=== PATIENT | female | born 1975 | race Caucasian/White ===

== ENCOUNTER → 2018-10-26 14:22 | Outpatient (CLI) | payer BC, SELFPAY ==
[2018-10-31 14:35] LABS: HPV Reflexed? NOT INDICATED
== END ==
PROVIDERS: Visit Provider Obstetrics & Gynecology
DX: Z12.4 Encounter for screening for malignant neoplasm of cervix (principal)
CPT/HCPCS: 88175; G0145

== ENCOUNTER → 2018-12-19 11:37 | Outpatient (CLI) | payer BC, SELFPAY ==
--- NOTE | 2018-12-19 11:43 | BI_ITS ---
MAMMOGRAPHY - BILATERAL SCREENING REASON FOR EXAM: Female, 43 years old. Routine annual screening examination. PERTINENT HISTORY: Non-contributory. TECHNIQUE: Digital bilateral breast yomi (3D mammographic acquisition) in the CC and MLO projections. 2-D mediolateral oblique (MLO) and craniocaudad (CC) views of both breasts were obtained. CAD: Full Field Digital Mammography with Computer Added Detection was performed. COMPARISON: Comparison is made with prior study dated May 26, 2018 and November 25, 2016. FINDINGS: Breast Composition: The breasts are heterogeneously dense, which may obscure small masses. There are no dominant masses or suspicious calcifications. No other significant abnormalities are identified. There has been no significant change since the prior study. BI/SCREENING MAMM (CAD), BILAT IMPRESSION: Stable bilateral screening mammogram. Yearly follow-up mammogram recommended. (A) ASSESSMENT CATEGORY: BIRADS Category 1: Negative. A letter regarding these results will be sent to the patient by the facility within 30 days. Approximately 10% of breast cancers are not detected by mammography. A normal mammogram should not delay biopsy of a clinically suspicious abnormality. [id number] Electronically Signed: Ihsan Becker MD at 10:12 EST , Service support ,
== END ==
PROVIDERS: Family Provider Family Medicine; PCP Family Medicine; Visit Provider Obstetrics & Gynecology
DX: Z12.31 Encounter for screening mammogram for malignant neoplasm of breast (principal)
CPT/HCPCS: 77063; 77067

== ENCOUNTER → 2019-12-20 12:23 | Outpatient (CLI) | payer BC, SELFPAY ==
--- NOTE | 2019-12-20 12:26 | BI_ITS ---
MAMMOGRAPHY - BILATERAL SCREENING REASON FOR EXAM: Female, 44 years old. Routine annual screening examination. PERTINENT HISTORY: Non-contributory. TECHNIQUE: Digital bilateral breast raymundo (3D mammographic acquisition) in the CC and MLO projections. 2-D mediolateral oblique (MLO) and craniocaudad (CC) views of both breasts were obtained. CAD: Full Field Digital Mammography with Computer Added Detection was performed. COMPARISON: Comparison is made with prior examination dated December 19, 2018 and November 26, 2017. FINDINGS: Breast Composition: The breasts are heterogeneously dense, which may obscure small masses. There are no dominant masses or suspicious calcifications. Stable small benign-appearing bilateral axillary lymph nodes. No other significant abnormalities are identified. There has been no significant change since the prior study. BI/SCREEN MAMM (CAD) W/RAYMUNDO BILAT IMPRESSION: Stable bilateral screening mammogram. Yearly follow-up mammogram recommended. (A) ASSESSMENT CATEGORY: BIRADS Category 2: Benign. A letter regarding these results will be sent to the patient by the facility within 30 days. Approximately 10% of breast cancers are not detected by mammography. A normal mammogram should not delay biopsy of a clinically suspicious abnormality. [id number] Electronically Signed: Ihsan Becker, at 14:17 EST , Service support ,
== END ==
PROVIDERS: PCP Family Medicine; Referring Provider Obstetrics & Gynecology; Visit Provider Obstetrics & Gynecology
DX: Z12.31 Encounter for screening mammogram for malignant neoplasm of breast (principal)
CPT/HCPCS: 77063; 77067

== ENCOUNTER → 2020-12-04 | Outpatient (CLI) | payer BC, SELFPAY ==
[2020-12-06 14:36] LABS: HPV APTIMA, High Risk Negative (Negative)
== END | disposition home or self-care (01) ==
LOC: LABSPEC 09:39
PROVIDERS: PCP Family Medicine; Visit Provider Obstetrics & Gynecology
DX: Z12.4 Encounter for screening for malignant neoplasm of cervix (principal)
CPT/HCPCS: 87624; 88175; G0145

== ENCOUNTER → 2020-12-23 07:58 | Outpatient (CLI) | payer BC, SELFPAY ==
--- NOTE | 2020-12-23 08:00 | BI_ITS ---
MAMMOGRAPHY - BILATERAL SCREENING REASON FOR EXAM: Female, 45 years old. Routine annual screening examination. PERTINENT HISTORY: Non-contributory. TECHNIQUE: Digital bilateral breast raymundo (3D mammographic acquisition) in the CC and MLO projections. 2-D mediolateral oblique (MLO) and craniocaudad (CC) views of both breasts were obtained. CAD: Full Field Digital Mammography with Computer Added Detection was performed. COMPARISON: Comparison is made with prior examination dated 06/19/2020 and 12/19/2018. FINDINGS: Breast Composition: The breasts are heterogeneously dense, which may obscure small masses. There are no dominant masses or suspicious calcifications. Stable benign-appearing bilateral axillary lymph nodes. No other significant abnormalities are identified. There has been no significant change since the prior study. BI/SCRN MAMM (CAD)W/RAYMUNDO BILAT IMPRESSION: Stable bilateral screening mammogram. Yearly follow-up mammogram recommended. (A) ASSESSMENT CATEGORY: BIRADS Category 2: Benign. A letter regarding these results will be sent to the patient by the facility within 30 days. Approximately 10% of breast cancers are not detected by mammography. A normal mammogram should not delay biopsy of a clinically suspicious abnormality. [id number] Electronically Signed: Ihsan Becker MD at 13:53 EST , Service support ,
== END ==
PROVIDERS: PCP Family Medicine; Referring Provider Obstetrics & Gynecology; Visit Provider Obstetrics & Gynecology
DX: Z12.31 Encounter for screening mammogram for malignant neoplasm of breast (principal)
CPT/HCPCS: 77063; 77067

== ENCOUNTER 2022-01-16 12:43 | Outpatient (CLI) | payer BC, SELFPAY ==
--- NOTE | 2022-01-16 12:46 | BI_ITS ---
MAMMOGRAPHY - BILATERAL SCREENING REASON FOR EXAM: Female, 46 years old. Routine annual screening examination. PERTINENT HISTORY: Non-contributory. TECHNIQUE: Digital bilateral breast raymundo (3D mammographic acquisition) in the CC and MLO projections. 2-D mediolateral oblique (MLO) and craniocaudad (CC) views of both breasts were obtained. CAD: Full Field Digital Mammography with Computer Added Detection was performed. COMPARISON: Comparison is made with prior study dated 12/23/2020 and 12/20/2019. FINDINGS: Breast Composition: The breasts are heterogeneously dense, which may obscure small masses. There are no dominant masses or suspicious calcifications. No other significant abnormalities are identified. There has been no significant change since the prior study. BI/SCRN MAMM (CAD)W/RAYMUNDO BILAT IMPRESSION: Stable bilateral screening mammogram. Yearly follow-up mammogram recommended. (A) ASSESSMENT CATEGORY: BIRADS Category 2: Benign. A letter regarding these results will be sent to the patient by the facility within 30 days. Approximately 10% of breast cancers are not detected by mammography. A normal mammogram should not delay biopsy of a clinically suspicious abnormality. [id number] Electronically Signed: Ihsan Becker MD at 14:08 EST ,
== END 2022-01-16 23:59 | disposition home or self-care (01) ==
LOC: OPBI 12:45
PROVIDERS: PCP Family Medicine; Referring Provider Obstetrics & Gynecology; Visit Provider Obstetrics & Gynecology
DX: Z12.31 Encounter for screening mammogram for malignant neoplasm of breast (principal)
CPT/HCPCS: 77063; 77067

== ENCOUNTER 2022-01-25 00:25 | Emergency (ER) | payer BC, SELFPAY ==
[2022-01-25 00:26] VITALS: BP 196/115; PULSE 55; RESP 19; TEMP 36.8; O2SAT 99; BMI 45.8
[2022-01-25 00:31] VITALS: BP 196/115; PULSE 52; RESP 18; TEMP 36.8; O2SAT 98
--- NOTE | 2022-01-25 00:57 | EDS_ITS ---
HPI HPI - GI History of Present Illness Chief Complaint: Abd Pain Informant: patient Abdominal Pain/Flank Pain Onset: Hours (3) Context: Gradual Onset (Around 2 hours after finishing meal) Timing: Continuous and Waxes and wanes Quality: Aching, Dull and - (Radiates into right shoulder blade area) Location: - (Across upper abdomen) Current Severity: Moderate Maximum Severity: Severe Worsened by: Nothing Relieved by: Nothing Nausea/Vomiting/Emesis GI Symptom: Positive for Nausea; Negative for Vomiting Diarrhea/Melena/Hematochezia GI Symptom: Negative for Diarrhea, Melena and Hematochezia Associated Symptoms Associated Symptoms: Negative for Dysuria, Frequency, Hematuria and Urgency Narrative Narrative: Patient is having an episode of pain as described above tonight, she has been having these episodes off and on at times for the last year. She states that her doctor told her to come to the ER when she has one of the episodes next time. She has had no imaging test for this yet and is concerned it may be her gallbladder. No history of any abdominal surgeries. No vomiting. No fevers, chills, jaundice, itching all over. PFSH PFS Medical History Anxiety Hypertension Home Medications naproxen sodium [Aleve] 220 mg PO Q12H PRN PRN 12/18/14 [History Last Taken Unknown] Ibuprofen [Motrin] 800 mg PO TID PRN PRN #60 tab 12/24/14 [Rx Last Taken Unknown] Allergy/AdvReac Type Severity Reaction Status Date / Time No Known Allergies Allergy Verified 12/24/14 12:08 Surgical History no surgical history no surgical history Social History Smoking Status: Former smoker ROS ROS ED Constitutional Constitutional ED: Denies chills or fever(s) Eyes Eyes: Denies change in vision or diplopia ENT ENT ED: Denies rhinorrhea or sore throat Cardiovascular Cardiovascular: Denies chest pain or palpitations Respiratory/Chest Respiratory/Chest: Denies cough or dyspnea Gastrointestinal Gastrointestinal: Reports as per HPI, abdominal pain and nausea; Denies diarrhea or vomiting Genitourinary Genitourinary ED: Denies dysuria or hematuria Musculoskeletal Musculoskeletal: Denies back pain or neck pain Integumentary Denies abscess or rash Neurologic Neurologic: Denies headache(s), paresthesias or weakness Psychiatric Psychiatric: Denies anxiety or suicidal thoughts EXAM Physical Exam Const Vital Signs: 01/25/22 00:26 01/25/22 00:31 Temperature 98.2 F 98.2 F Temperature Source Oral Oral Pulse Rate 55 L 52 L Respiratory Rate 19 H 18 Blood Pressure 196/115 H 196/115 H Blood Pressure Mean 142 142 Pulse Ox 99 98 Oxygen Delivery Method Room Air Room Air Positive well nourished, well developed and obese General Appearance ED: well developed and NAD Nutritional Appearance: obese HEENT Reports moist mucous membranes normocephalic and atraumatic Eyes PERRL and EOMs intact bilaterally Neck full ROM and supple Resp normal respiratory effort and clear to auscultation bilaterally Cardio regular rate, regular rhythm and no murmurs GI non-distended GI Narrative: Tender in right upper quadrant and epigastrium, no guarding or rebound but moderately tender. The rest of the abdomen is benign and nontender. Auscultation: normoactive bowel sounds Palpation: soft Back/Spine no CVA tenderness General Back: other FROM Extremity normal to inspection General Extremety ED: Negative for edema, pulses abnormal or tenderness General Extremity: Negative for edema or pulses abnormal Neuro oriented x3, CN's II-XII intact bilaterally and no sensory deficits noted Sensorium / Orientation: awake and alert Motor Exam: strength 5/5 throughout Skin no rashes or lesions noted and no wounds MDM MDM MDM Narrative Medical decision making narrative: Patient symptoms are consistent with biliary colic. However the patient presents when ultrasound is not available. I did a bedside ultrasound after treating her with IV fluids, morphine, Toradol, Zofran. I see a normal gallbladder wall, no obvious pericholecystic fluid, and no obvious shadowing stones. However, her gallbladder is residing up underneath of her ribs, and she is obese and the visualization was very limited with my screening machine in the ER. She definitely has a negative sonographic Romero, and at the time that I was doing the imaging she felt much better. Given her labs, they look very benign, I think she can be discharged home. She does not appear to have acute cholecystitis. I will refer her to surgery and set her up for an outpatient ultrasound to be done prior to being seen. We discussed foods to avoid and reasons to return and they are comfortable with that plan. She and her also recently moved from [place] to [place] and she would like a referral to a female primary care physician locally, her is in the [facility] system so she is referred to them as well. Lab Data Attestation: I reviewed the patient's lab results. Labs: Laboratory Results - last 24 hr 01/25/22 01/25/22 01/25/22 00:28 00:28 01:30 WBC 9.9 RBC 4.95 Hgb 15.1 H Hct 44.8 MCV 90.5 MCH 30.5 MCHC 33.7 RDW Std Deviation 41.8 RDW Coeff of Kayla 12.9 Plt Count 208 MPV 9.0 Immature Gran % (Auto) 0.300 Neut % (Auto) 52.7 Lymph % (Auto) 33.4 [place] % (Auto) 8.6 Eos % (Auto) 4.6 Baso % (Auto) 0.4 Absolute Neuts (auto) 5.2 Absolute Lymphs (auto) 3.30 Nucleated RBC % 0 Sodium 140 Potassium 3.8 Chloride 106 Carbon Dioxide 29.0 Anion Gap 5 BUN 15 Creatinine 1.14 H Estim Creat Clear Calc 61.54 Est GFR (MDRD) Af Amer 66 Est GFR (MDRD) Non-Af 54 L BUN/Creatinine Ratio 13.2 Glucose 118 H Calcium 9.4 Total Bilirubin 0.70 AST 24 ALT 47 Alkaline Phosphatase 107 Total Protein 7.4 Albumin 3.4 Globulin 4.0 Albumin/Globulin Ratio 0.8 L Lipase 245 Urine Color Yellow Urine Clarity Clear Urine pH 6.5 Ur Specific Jackson 1.010 Urine Protein Negative Urine Glucose (UA) Normal Urine Ketones Negative Urine Occult Blood 150 H Urine Nitrite Negative Urine Bilirubin Negative Urine Urobilinogen Normal Ur Leukocyte Esterase Negative Urine RBC 5-10 SEEN Urine WBC 0 SEEN Ur Squamous Epith Cells 5-10 SEEN Urine Bacteria 1+ Urine Mucus 0 SEEN Discharge Plan Triage Chief Complaint: Abd Pain ED Provider: Xavier Feng Dx/Rx/DC Orders Clinical Impression: Biliary colic Instructions: Discharge Instructions for ... Prescriptions: No Action naproxen sodium [Aleve] 220 MG tablet 220 mg PO Q12H PRN PRN (Reason: Pain) RF: 0 Ibuprofen [Motrin] 800 MG tablet 800 mg PO TID PRN PRN (Reason: Abdominal Pain) Qty: 60 RF: 1 Other Ambulatory Orders: Gallbladder (Routine) Facility: [facility] - Location: [facility] Ordered By: Dr. Xavier Feng Primary Care Provider: Yasmin Heard Referrals: Denny Lovett DO [NON-STAFF] - (for primary care) Yasmin Heard DO [Primary Care Provider] - Mary Spangler MD [STAFF PHYSICIAN] - 3-5 Days (Call for appointment to be seen after your ultrasound) Disposition Disposition: Home, Self Care
[2022-01-25] MEDS: Ondansetron 4 MG/2 ML Vial IV (01:04)
[2022-01-25 01:05] LABS: Absolute Neutrophil Count 5.2 X10^3/uL (2.0-7.7); Basophil# 0.04 X10^3/uL; Basophil% 0.4 % (0-1); Eosinophil# 0.45 X10^3/uL; Eosinophils% 4.6 % (0-5); Hematocrit 44.8 % (37-47); Hemoglobin 15.1 g/dL (12.0-15.0); Lymphocyte % 33.4 % (19-41); Mean Corp Hgb Conc 33.7 g/dL (32-36); Mean Corpuscular Hgb 30.5 pg (27.0-32.0); Mean Corpuscular Volume 90.5 fL (81-99); Monocyte# 0.85 X10^3/uL; Monocyte% 8.6 % (0-10); NRBC Flagged by Analyzer 0 % (0-5); Neutrophil # 5.22 X10^3/uL (2.7-7.7); Neutrophil % 52.7 % (47-70); Platelet Count 208 K/mm3 (150-450); RBC Distribution Width CV 12.9 % (11.6-14.6); RBC Distribution Width SD 41.8 fl (35.1-43.9); Red Blood Count 4.95 M/mm3 (4.2-5.4); White Blood Count 9.9 K/mm3 (4.4-11.0)
[2022-01-25] MEDS: Ketorolac 15 MG/ML Vial IV (01:05)
[2022-01-25] MEDS: Morphine 4 MG/ML Syringe IV (01:07)
[2022-01-25 01:19] LABS: ALB/GLOB Ratio 0.8 RATIO (0.9-2.4); AST(SGOT) 24 U/L (15-37); Alanine Aminotransfer ALT/SGPT 47 U/L (13-56); Albumin, Serum 3.4 g/dL (3.2-5.0); Alkaline Phosphatase 107 U/L (45-117); Anion Gap 5 (5-15); BUN 15 mg/dL (7-18); BUN/Creat Ratio 13.2 RATIO (10-20); Calcium,Total 9.4 mg/dL (8.5-10.1); Chloride 106 mmol/L (98-107); Creatinine, Serum 1.14 mg/dL (0.55-1.02); EST Glomerular Filtration Rate 54 mL/min (>60); Est Glom Filt Rate - Afr Amer 66 mL/min (>60); Estimated Creatinine Clearance 61.54 ml/min; Glucose 118 mg/dL (74-106); Lipase 245 U/L (73-393); Potassium 3.8 mmol/L (3.5-5.1); Protein, Total 7.4 g/dL (6.4-8.2); Sodium Level 140 mmol/L (136-145)
[2022-01-25 01:39] LABS: Mucous, Urine 0 SEEN /hpf (<or=2+); White Blood Cells 0 SEEN /hpf (0-5)
[2022-01-25 01:40] LABS: Color, Urine Yellow (Yellow); Glucose, Dipstick Normal (Normal); Ketone-Dipstick Negative (Negative); Leukocyte Esterase-Dipstick Negative /ul (Negative); Nitrite-Dipstick Negative (Negative); Occult Blood-Urine 150 /ul (Negative); Protein-Dipstick Negative (Negative); Urine Bilirubin Dipstick Negative (Negative); Urine Clarity Clear (Clear); Urine Urobilinogen Normal (Normal); Urine pH 6.5 (5.0 - 8.0)
[2022-01-25 01:46] LABS: Bacteria 1+ /hpf (None Seen); Red Blood Cells-Urine 5-10 SEEN /hpf (0-5); Squamous Epithelial Cells - UA 5-10 SEEN /hpf (5-10)
== END 2022-01-25 02:14 | disposition home or self-care (01) ==
PROVIDERS: Emergency Provider Emergency Medicine; PCP Family Medicine; Visit Provider Emergency Medicine
DX: K80.50 Calculus of bile duct without cholangitis or cholecystitis without obstruction (principal); Z68.42 Body mass index [BMI] 45.0-49.9, adult; E66.9 Obesity, unspecified; Z87.891 Personal history of nicotine dependence
CPT/HCPCS: 80053; 81001; 83690; 85025; 96374; 96375; 99283; A4216; J2405

== ENCOUNTER 2022-01-30 09:09 | Outpatient (CLI) | payer BC, SELFPAY ==
--- NOTE | 2022-01-30 09:12 | US_ITS ---
STUDY: ABDOMINAL ULTRASOUND - RIGHT UPPER QUADRANT REASON FOR VISIT: Female, 46 years old Biliary colic -- Results to Dr. Mary Spangler TECHNIQUE: Ultrasound evaluation of the right upper quadrant was performed with real-time and static jimenez-scale imaging. TECHNICAL QUALITY: Limited. Examination limited due to obesity. COMPARISON: None. FINDINGS: Liver: The liver is enlarged and measures 18.2 cm. There is increased echogenicity consistent with fatty infiltration. The bile ducts are within normal limits. There is hepatic color flow. The direction of portal flow is hepatopetal. There is no demonstrated mass lesion. Gallbladder: There is a contracted gallbladder. The gallbladder wall measures 3 mm. There is a negative sonographic Romero''s sign. There is no pericholecystic fluid. There are multiple echogenic structures within the gallbladder, consistent with multiple gallstones. Common Bile Duct (C.B.D.): The common bile duct measures 10 mm. Pancreas: Normal size of the head, body and tail of the pancreas. There is normal echogenicity of the pancreas. There is no demonstrated pancreatic mass or cyst. Right Kidney: Normal size of the right kidney. The right kidney measures 10.2 cm x 5 cm x 4.1 cm. Normal renal cortex. The right cortex measures 1.5 cm. There is no demonstrated renal mass or cyst. There is no right hydronephrosis. US/Gallbladder IMPRESSION: There is a contracted stone filled gallbladder. Fatty infiltration of the liver. Mild hepatomegaly. Electronically Signed: Ihsan Becker MD at 13:04 EST ,
== END 2022-01-30 23:59 | disposition home or self-care (01) ==
LOC: US 09:10
PROVIDERS: PCP Family Medicine; Referring Provider Emergency Medicine; Visit Provider Emergency Medicine
DX: K80.20 Calculus of gallbladder without cholecystitis without obstruction (principal); K76.0 Fatty (change of) liver, not elsewhere classified; R16.0 Hepatomegaly, not elsewhere classified
CPT/HCPCS: 76705

== ENCOUNTER → 2023-01-22 | Outpatient (CLI) | payer OTHER, SELFPAY ==
--- NOTE | 2023-01-22 09:54 | BI_ITS ---
MAMMOGRAPHY - BILATERAL SCREENING REASON FOR EXAM: Female, 47 years old. Routine annual screening examination. PERTINENT HISTORY: Non-contributory. TECHNIQUE: Digital bilateral breast raymundo (3D mammographic acquisition) in the CC and MLO projections. 2-D mediolateral oblique (MLO) and craniocaudad (CC) views of both breasts were obtained. CAD: Full Field Digital Mammography with Computer Added Detection was performed. COMPARISON: Comparison is made with prior study January 16, 2022 and December 23, 2020. FINDINGS: Breast Composition: The breasts are heterogeneously dense, which may obscure small masses. There are no dominant masses or suspicious calcifications. Stable small benign-appearing bilateral axillary lymph nodes. No other significant abnormalities are identified. There has been no significant change since the prior study. BI/SCRN MAMM (CAD)W/RAYMUNDO BILAT IMPRESSION: Stable bilateral screening mammogram. Yearly follow-up mammogram recommended. (A) ASSESSMENT CATEGORY: BIRADS Category 2: Benign. A letter regarding these results will be sent to the patient by the facility within 30 days. Approximately 10% of breast cancers are not detected by mammography. A normal mammogram should not delay biopsy of a clinically suspicious abnormality. [id number] Electronically Signed: Ihsan Becker MD at 10:58 EST ,
== END | disposition home or self-care (01) ==
LOC: OPBI 09:54
PROVIDERS: PCP Family Medicine; Visit Provider Obstetrics & Gynecology
DX: Z12.31 Encounter for screening mammogram for malignant neoplasm of breast (principal)
CPT/HCPCS: 77063; 77067

== ENCOUNTER → 2024-01-28 | Outpatient (CLI) | payer OTHER, SELFPAY ==
--- NOTE | 2024-01-28 12:11 | BI_ITS ---
MAMMOGRAPHY - BILATERAL SCREENING 3-D TOMOSYNTHESIS REASON FOR EXAM: Female, 48 years old. screening mammogram PERTINENT HISTORY: No significant family history. TECHNIQUE: 2-D mammograms and 3-D Tomosynthesis of the breast (s) were performed. CAD was performed. COMPARISON: 01/22/2023 FINDINGS: The breast composition is heterogeneously dense that can obscure small breast masses. Scattered benign calcifications are seen. No dense spiculated masses or suspicious microcalcifications are identified. No architectural distortion is identified. There is no skin thickening or retraction. There has been no significant change since the prior study. BI/SCRN MAMM (CAD)W/RAYMUNDO BILAT IMPRESSION: No mammographic signs of malignancy. Routine yearly mammograms recommended. ASSESSMENT CATEGORY: BIRADS Category 1: Negative. A letter regarding these results will be sent to the patient by the facility within 30 days. FOLLOW UP RECOMMENDATION: Yearly follow up mammogram recommended. (A) Approximately 10% of breast cancers are not detected by mammography. A normal mammogram should not delay biopsy of a clinically suspicious abnormality. Electronically Signed: James Mcleod MD at 14:19 EST ,
--- OUTSIDE RECORDS SUMMARY | 2024-01-28 12:26 | XMS RPT_ITS | CCD ---
Author Name Unknown Address [address] [place] [address] Organization [facility] Care Team Providers Care Market Editor Name Role Phone Jesus Loera Primary Care Provider 1(02 18) Jesus Loera Primary Care Provider 1(02 18) Adali Pinto DO Primary Care Provider [phone] [phone] ADALI PINTO DO Primary Care Physician (330 ) Adali Pinto DO Primary Care Provider 1(330 [phone] Adali Pinto DO Primary Care Provider [phone] ADALI PINTO Primary Care Unavailable , GAIL Attending Unavailable ADALI PINTO Referring Unavailable MARY SPANGLER Attending Unavailable , GAIL Referring Unavailable ADALI PINTO Primary Care Unavailable ADALI PINTO Primary Care Unavailable MARY SPANGLER Referring Unavailable GAIL LAW Attending Unavailable GRAF GAIL Referring Unavailable ADALI PINTO Primary Care Unavailable ALONSO COMER Referring Unavailab JESUS Soares Primary Care Unavailab MARY Dumas Attending Unavailable JESUS LOERA Primary Care Unavailab MARY Dumas Referring Unavailable IGNACIO CARTER Attending Unavailable , GAIL Attending Unavailable ADALI PINTO Primary Care Unavailable ADALI PINTO Referring Unavailable ADALI PINTO DO Primary Care Physician ([phone]) ADALI PINTO DO Attending Unavailable ADALI PINTO DO Primary Care Unavailable ADALI PINTO DO Attending Unavailable ADALI PINTO DO Primary Care Unavailable ADALI PINTO DO Attending Unavailable ADALI PINTO DO Primary Care Unavailable ADALI PINTO DO Attending Unavailable ADALI PINTO DO Primary Care Unavailable ADALI PINTO DO Attending Unavailable ADALI PINTO DO Primary Care Unavailable Allergies Allergy Classification Reported Allergen(s) Allergy Type Date of Onset Reaction(s) Facility (1 source) Lisinopril; Translations: [lisinopril] Drug Allergy cough [facility] [place] Medications Current Medications Medication Drug Class(es) Dates Sig (Normalized) Sig (Original) amLODIPine 10 mg oral tablet (3 sources) Dihydropyridine Calcium Channel [place] Start: 04-16-2023 amLODIPine 10 mg oral tablet Dose : 10 mg = 1 tab(s), Oral, qDay, Increased dose. Please discontinue the metoprolol 25 mg prescription, # 30 tab(s), 5 Refill(s), Pharmacy: [facility][id number], Hypertension, 171.5, cm, 04/16/23 8:57:00 EDT, Height Start Date: 04/16/23 Status: Ordered biotin 5 mg oral capsule (1 source) Start: 10-01-2023 biotin 5 mg oral capsule Dose : 5 mg = 1 cap(s), Oral, qDay, # 30 cap(s), 0 Refill(s) Start Date: 10/01/23 Status: Ordered 24 hr buPROPion hydrochloride 300 mg extended release oral tablet (4 sources) Aminoketone Start: 10-01-2023 take 1 tablet by mouth every hour, then take 1 tablet by mouth once daily Wellbutrin XL 300 mg/24 hours oral tablet, extended release Dose : 300 mg = 1 tab(s), Oral, qDay, # 90 tab(s), 1 Refill(s), Pharmacy: [facility] #[id number], Recurrent major depression Anxiety, 174, cm, 10/01/23 9:09:00 EST, Height, kg, 10/01/23 9:09:00 EST, Dosing Weight Start Date: 10/01/23 Status: Ordered Completed/Discontinued Medications Medication Drug Class(es) Dates Sig (Normalized) Sig (Original) cholecalciferol, vitamin D3, (VITAMIN D3 ORAL) (7 sources) Start: 05-15-2020 cholecalciferol, vitamin D3, (VITAMIN D3 ORAL) Take by mouth once daily. 0 05/15/2020 Active Problems Active Problems Problem Classification Problem Date Documented Date Episodic/Chronic Anxiety disorders (6 sources) Anxiety 05-15-2020 Chronic Biliary tract disease (2 sources) Cholelithiasis without obstruction; Translations: [Calculus of gallbladder without cholecystitis without obstruction] Episodic Chronic kidney disease (1 source) Chronic kidney disease stage 3 10-01-2023 Chronic Essential hypertension (8 sources) Hypertensive disorder; Translations: [Essential (primary) hypertension] Onset: 04-16-2023 05-15-2020 Chronic Malaise and fatigue (4 sources) Fatigue 04-16-2023 Episodic Mood disorders (4 sources) Depressive disorder; Translations: [Recurrent major depression] 02-12-2023 Chronic Nutritional deficiencies (1 source) Vitamin D deficiency 10-01-2023 Chronic Other nutritional; endocrine; and metabolic disorders (5 sources) Body mass index 40+ - severely obese; Translations: [Body mass index (BMI) 40.0-44.9, adult] Onset: 02-18-2022 02-18-2022 Chronic Other nutritional; endocrine; and metabolic disorders (6 sources) Morbid obesity 05-15-2020 Chronic Other screening for suspected conditions (not mental disorders or infectious disease) (4 sources) Patient encounter status; Translations: [Encounter for screening for malignant neoplasm of colon] Onset: 08-14-2022 Episodic Residual codes; unclassified (6 sources) Needs influenza immunization 11-07-2020 Episodic Residual codes; unclassified (1 source) Screening due 06-25-2023 Episodic Thyroid disorders (1 source) Hypothyroidism 06-25-2023 Chronic Unclassified (6 sources) Cancer cervix screening status 06-12-2021 Unclassified (20 sources) Patient encounter status 05-15-2020 Unclassified (4 sources) Finding of heart rate 02-12-2023 Past or Other Problems Problem Classification Problem Date Documented Da te Episodic/Chronic Genitourinary symptoms and ill-defined conditions (3 sources) Urine looks dark; Translations: [Other abnormal findings in urine] Onset: 02-25-2022 Episodic Results Test Name Value Interpretation Reference Range Facil ity Vital Signs Date Time Vital Sign Value Performing Clinician Faci lity 08-14-2022 12:19-0400 Heart rate 65 /min Mary Spangler MD Work Phone: [facility] 08-14-2022 12:19-0400 SaO2% (BldA) [Mass fraction] 97 % Mary Spangler MD Work Phone: [facility] 08-14-2022 12:09-0400 Diastolic blood pressure 107 mm[Hg] Mary Spangler MD Work Phone: [facility] 08-14-2022 12:09-0400 Respiratory rate 16 /min Mary Spangler MD Work Phone: [facility] 08-14-2022 12:09-0400 Systolic blood pressure 157 mm[Hg] Mary Spangler MD Work Phone: [facility] 08-14-2022 10:10-0400 Body temperature 98.4 [degF] Mary Spangler MD Work Phone: [facility] 07-15-2022 08:32-0400 Body height 172.7 cm Gail Thanh PA-C Work Phone: [facility] 07-15-2022 08:32-0400 Body temperature 98.49 [degF] Gail Thanh PA-C Work Phone: [facility] 07-15-2022 08:32-0400 Body weight 135.17 kg Gail Grand Ledge PA-C Work Phone: [facility] 07-15-2022 08:32-0400 Diastolic blood pressure 58 mm[Hg] Gail Grand Ledge PA-C Work Phone: [facility] 07-15-2022 08:32-0400 Heart rate 72 /min Gail Thanh PA-C Work Phone: [facility] 07-15-2022 08:32-0400 SaO2% (BldA) [Mass fraction] 97 % Gail Grand Ledge PA-C Work Phone: [facility] 07-15-2022 08:32-0400 Systolic blood pressure 129 mm[Hg] Gail Grand Ledge PA-C Work Phone: [facility] 02-25-2022 14:55-0400 Body height 172.7 cm Gail Grand Ledge PA-C Work Phone: [facility] 02-25-2022 14:55-0400 Body temperature 97.81 [degF] Gail Thanh PA-C Work Phone: [facility] 02-25-2022 14:55-0400 Body weight 59.65 kg Gail Grand Ledge PA-C Work Phone: [facility] 02-25-2022 14:55-0400 Diastolic blood pressure 88 mm[Hg] Gail Grand Ledge PA-C Work Phone: [facility] 02-25-2022 14:55-0400 Heart rate 65 /min Gail Grand Ledge PA-C Work Phone: [facility] 02-25-2022 14:55-0400 SaO2% (BldA) [Mass fraction] 100 % Gail Thanh PA-C Work Phone: [facility] 02-25-2022 14:55-0400 Systolic blood pressure 134 mm[Hg] Gail Grand Ledge PA-C Work Phone: [facility] 02-17-2022 09:43-0400 Body height 172.7 cm Ignacio Carter MD Work Phone: [facility] 02-17-2022 09:43-0400 Body temperature 97.59 [degF] Ignacio Carter MD Work Phone: [facility] 02-17-2022 09:43-0400 Body weight 131.54 kg Ignacio Carter MD Work Phone: [facility] 02-17-2022 09:43-0400 Diastolic blood pressure 82 mm[Hg] Ignacio Carter MD Work Phone: [facility] 02-17-2022 09:43-0400 Heart rate 72 /min Ignacio Carter MD Work Phone: [facility] 02-17-2022 09:43-0400 SaO2% (BldA) [Mass fraction] 97 % Ignacio Carter MD Work Phone: [facility] 02-17-2022 09:43-0400 Systolic blood pressure 116 mm[Hg] Ignacio Carter MD Work Phone: [facility] Encounters Encounter Date Encounter Type Care Provider Facility Start: 01-21-2024 End: 01-22-2024 ambulatory ADALI PINTO DO Facility:[facility] Start: 01-21-2024 End: 01-21-2024 Patient encounter procedure ADALI PINTO DO [facility] Start: 09-24-2023 End: 09-25-2023 ambulatory ADALI PINTO DO Facility:[facility] Start: 06-18-2023 End: 06-19-2023 ambulatory ADALI PINTO DO Facility:[facility] Start: 06-18-2023 End: 06-18-2023 Patient encounter procedure ADALI PINTO DO [facility] Start: 04-23-2023 End: 04-24-2023 ambulatory ADALI PINTO DO Facility:[facility] Start: 04-23-2023 End: 04-23-2023 Patient encounter procedure ADALI PINTO DO [facility] Start: 04-16-2023 End: 04-21-2023 ambulatory ADALI PINTO DO Facility:[facility] Start: 04-16-2023 End: 04-20-2023 Outreach Lab ADALI PINTO DO [facility] Start: 10-31-2022 End: 11-04-2022 Outreach Lab DAVID GARCIA [employer]P [employer] [facility] Start: 08-24-2022 End: 08-24-2022 ambulatory ADALI Merrill MILLIE Facility:[facility] Start: 08-14-2022 End: 08-14-2022 ambulatory MARY SPANGLER Facility:[facility] Start: 08-14-2022 End: 08-14-2022 Subsequent hospital visit by physician Mary Spangler MD Work Phone: Ambulatory Surgery Procedures Date Procedure Procedure Detail Performing Clinician Start: 08-14-2022 Colonoscopy flx dx w /collj spec when pfrmd Gail Law PA-C Work Phone: Start: 08-14-2022 Colonoscopy Mayr Spangler MD Work Phone: Start: 02-18-2022 Cholecystectomy ADALI PINTO DO Start: 12-24-2014 Hysteroscopy ADALI OLIVAS DO Plan of Treatment Date Care Activity Detail Author Start: 08-14-2023 Colonoscopy COLONOSCOPY [facility] Start: 08-14-2023 COLORECTAL CANCER SCREENING COLORECTAL CANCER SCREENING [facility] Start: 07-23-2022 Influenza vaccination [facility] Start: 03-29-2022 End: 05-29-2022 Urinalysis complete panel - Urine URINALYSIS, WITH MICROSCOPIC Lab Routine Dark urine Expected: 03/29/2022 (Approximate), Expires: 05/29/2022 [facility] Work Phone: Immunizations Immunization Date Immunization Notes Care Provider Fa [facility] 02-23-2022 hepatitis B vaccine, adult dosage ADALI PINTO DO [facility] 02-23-2022 tetanus toxoid, redu maribell diphtheria toxoid, and acellular pertussis vaccine, adsorbed ADALI PINTO DO [facility] 07-16-2021 COVID-19, mRNA, LNP- S, PF, 100 mcg or 50 mcg dose; Translations: [Moderna COVID-19 Vaccine] ADALI PINTO DO [facility] 06-18-2021 COVID-19, mRNA, LNP- S, PF, 100 mcg or 50 mcg dose; Translations: [Moderna COVID-19 Vaccine] ADALI PINTO DO [facility] 08-24-2018 tetanus and diphther ia toxoids, adsorbed, preservative free, for adult use (5 Lf of tetanus toxoid and 2 Lf of diphtheria toxoid) ADALI PINTO DO [facility] Payers Date Payer Category Payer Unknown MMO MMO [employer] [id number] 2022-Present [phone] [address] [place] [address] PPO [id number] 2022 Unknown [id number] 2021 Unknown TONYA RAYA SS PPO [id number] 2021-Present [phone] [address] [place] [address] PPO [id number] 2021 Unknown [id number] 1975 Unknown [id number] 1975 Unknown [id number] 1974 Unknown [id number] 1974 Unknown [id number] 1975 Unknown [id number] Social History Date Type Detail Facility Start: 02-04-2022 End: 08-14-2022 Tobacco smoking status NHIS Never smoked tobacco [facility] Start: 02-04-2022 End: 08-14-2022 Alcohol intake Current drinker of alcohol (finding) [facility] Start: 1975 Sex Assigned At Not on file [facility] Start: 01-25-2022 End: 08-14-2022 Exposure to SARS-CoV-2 (event) Not sure [facility] Start: 05-15-2020 Tobacco smoking status Ex-smoker (fi nding) [facility] Sex Assigned At Sex [facility] Start: 02-04-2022 End: 08-14-2022 Tobacco use and exposure Smokeless tobacco non-user [facility] Clinical Notes 02-04-2022 to 08-24-2022 Sharon Mandujano RN - 08/14/2022 11:39 AM Germain Spangler MD - 08/14/2022 10:30 AM Germain Spangler MD - 08/14/2022 10:30 AM Chas Law PA-C - 07/15/2022 8:36 AM EDTPatient Instructions Note Date & Type Note Facility 08-24-2022 Note HNO ID: [id number] Author: Gail Law PA-C Service: ? Author Type: Physician Turn Down Man Type: Progress Notes Filed: 08/24/2022 11:36 PM Note Text: FOLLOW UP VISIT - ENDOSCOPY NAME: Ernie Xiao [facility] NO.: [id number] DATE OF SERVICE: 08/24/2022 : 1975 REFERRING PHYSICIAN: Adali Pinto DO Ernie is a patient I am following for screening colonoscopy. Dr. Spangler performed lower endoscopy on 08/14/22. The patient was found to have non-bleeding internal hemorrhoids, and was also noted to have a small rectal polyp which was removed. Pathology demonstrated: FINAL DIAGNOSIS A. Rectum, polyp, biopsy: - Tubular adenoma. The patient notes no complaints since the procedure. VITALS: There were no vitals taken for this visit. General: patient is alert, cooperative, pleasant and in no acute distress On examination, the abdomen is benign. Assessment IMPRESSION: s/p colonoscopy with polypectomy, tubular adenoma <10 mm in size PLAN: The operative findings and pathology report were reviewed with the patient, and the patient has had the opportunity to ask questions and have questions answered. If the patient notes any problems or changes in bowel function, the patient should contact me immediately. Otherwise I recommend follow up endoscopy in 5 years. updated and recall letter generated. Patient verbalized understanding of all above and agreed with the plan Diagnoses: (D36.9) Tubular adenoma (primary encounter diagnosis) I spent a total of 22 minutes on the date of the service which included preparing to see the patient, [id number] patient care, completing clinical documentation, obtaining and/or reviewing separately obtained history, counseling and educating the patient/family/caregiver, communicating with other HCPs (not separately reported), and independently interpreting results (not separately reported). Gail Law PA-C [facility] 08-14-2022 Nurse Note Arrived in phase II via cart. Left lateral position. Sedated, but responds to verbal stimuli. Color normal; skin warm and dry. Respirations wnl and unlabored. Abdomen soft and with + bowel sounds in quads X 4. Patient resting comfortably. Sharon Mandujano RN documented in this encounter [facility] 08-14-2022 History and physical note UPDATED PROCEDURAL SEDATION HISTORY AND PHYSICAL EXAMINATION SERVICE DATE: 08/14/2022 SERVICE TIME: 10:19 PHYSICAL EXAM MUST BE COMPLETED ON ADMISSION PROCEDURE: colonosocpy, possible biopsies Procedure Indications: screening for colon cancer The History and Physical (completed in the past 30 days) has been reviewed and the patient has been examined. The contents accurately reflect the patient's condition with the following additions or revisions since the H&P was completed. ASA Class: ASA Class:: Patient with severe systemic disease Examination indicates no changes. AIRWAY: Airway Visualization of Uvula: Yes Mouth opening greater than 2 fingerbreadths: Yes Neck Full Range of Motion: Yes LUNGS: Lungs clear to auscultation CARDIAC: Regular rhythm,Regular rate Provisional Diagnosis/Treatment Plan: colonoscopy, possible biopsies SEDATION GOAL: Moderate This H&P can be found in the Electronic Medical Record . SIGNATURE: Mary Spangler MD PATIENT NAME: Ernie Leblanc DATE: August 14, 2022 TIME: 10:19 AM Source Note - Mary Spangler MD - 08/14/2022 10:30 AM EDT HISTORY AND PHYSICAL Ernie Leblanc 1975 REFERRING PHYSICIAN: Adali Pinto DO CHIEF COMPLAINT: Consult (Colonoscopy) HPI: The patient is a 47 year old female referred for endoscopy. Ernie notes some loose stools ever since her laparoscopic cholecystectomy earlier this year. Patient denies any weight changes, blood in stools, black tarry stools or abdominal pain. Denies family history of colon issues in a first-degree relative. The patient notes no upper GI complaints. Ernie has not undergone prior endoscopy. Patient's past medical history is significant for obesity, hypertension, anxiety. She follows with Dr. Pinto in primary care for her chronic medical conditions. Patient denies chest pain, shortness of breath or recent hospitalizations. Denies problems with sedation in the past. PAST MEDICAL HISTORY PAST MEDICAL HISTORY Diagnosis Date BMI 40.0-44.9, adult ([facility]) 02/18/2022 Essential hypertension Generalized anxiety disorder NONE PAST SURGICAL HISTORY PAST SURGICAL HISTORY Procedure Laterality Date LAPAROSCOPIC CHOLECYSTECTOMY 02/18/2022 PAST SURGICAL HISTORY OF 2015 D & C CURRENT MEDICATIONS Current Outpatient Medications Medication Sig metoprolol succinate ER (TOPROL XL) 100 mg Take 100 mg by mouth once daily. citalopram (CELEXA) 20 mg tablet Take 20 mg by mouth once daily. cholecalciferol, vitamin D3, (VITAMIN D3 ORAL) Take by mouth once daily. ibuprofen (MOTRIN) 800 mg tablet Take 800 mg by mouth as needed. naproxen sodium (ANAPROX) 220 mg tablet Take by mouth as needed. Lactobacillus acidophilus (PROBIOTIC ORAL) Take by mouth once daily. MULTIVITAMIN TAB Take one(1) tablet daily. No current facility-administered medications for this visit. ALLERGIES: Patient has no known allergies. PERSONAL HISTORY: SOCIAL HISTORY Social History Tobacco Use Smoking status: Never Smokeless tobacco: Never Vaping Use Vaping Use: Never used Substance Use Topics Alcohol use: Yes Comment: OCCAS. Drug use: No FAMILY HISTORY: FAMILY HISTORY FAMILY HISTORY Problem Relation Age of Onset Cancer Maternal Grandmother Cancer Maternal Grandfather Diabetes Father Heart Father Diabetes Paternal Grandfather other (PARKINSON'S) Paternal Grandfather REVIEW OF SYMPTOMS: The review of systems data was entered by the nurse and reviewed by sd Nursing Notes: Carissa Smith 07/15/2022 8:35 AM Signed REVIEW OF SYSTEMS: General: The patient denies fatigue, denies weight loss, denies weight gain, denies feeling hot, and denies feelings of cold. Eyes: The patient denies glaucoma, denies eye injury/surgery, wears glasses or contacts. Ear/Nose/Throat: The patient NOTES allergies, denies hayfever, denies ear infections, and denies bloody noses. Cardiovascular: The patient denies chest pain, denies heart disease, NOTES high blood pressure,denies cardiac stent, denies prior heart attack, denies irregular heart beat, denies high cholesterol, denies poor circulation, denies heart failure, other cardiac issues, denies claudication, denies cold feet, denies peripheral arterial stent. Respiratory: The patient denies tuberculosis, denies pneumonia, denies frequent cough, denies pulmonary embolism, denies shortness of breath, and denies coughing up blood. Gastrointestinal: The patient denies difficulty swallowing, denies acid reflux, denies ulcers, denies vomiting, denies jaundice/hepatitis, denies gallbladder problems, denies black or tarry stools, denies hemorrhoids, denies bleeding from rectum, denies diverticulitis, denies constipation, denies diarrhea, denies loss of stool control, and denies hernias. Kidney/Bladder: The patient denies kidney stones, denies urine infections, and denies bloody urine. Skin: The patient denies a history of skin cancer, denies bleeding/changing moles, and denies a history of skin rash. Neurologic: The patient denies a history of epilepsy/convulsions, denies headaches, denies head/spinal injuries, and denies stroke/TIA. Psychiatric: The patient denies psychiatric medications, denies depression, and denies voices, denies substance abuse. Endocrine: The patient denies thyroid disorders, denies diabetes, and denies hormonal problems. Hematologic: The patient NOTES a history of bruising, denies bleeding, and denies anemia, denies blood clots. Infections: The patient denies a history of measles and mumps, denies rheumatic fever, and denies sexually transmitted diseases. Musculoskeletal: The patient denies back pain/injury, denies back problems, denies sciatica, denies knee/foot trouble, NOTES arthritis, or denies gout. When was patient's last Mammogram screening? 12/2021 Last Colonoscopy: None Carissa Smith I have confirmed and edited as necessary, the PFSH and ROS obtained by others. Gail Law PA-C PHYSICAL EXAMINATION: General: The patient is 47 year old female, well nourished, well hydrated in no acute distress. The patient is oriented to time, place, and person. VITALS: Blood pressure 129/58, pulse 72, temperature 36.9 C (98.5 F), height 172.7 cm (5' 8 ), weight 135.2 kg (298 lb), last menstrual period 06/11/2008, SpO2 97 %. Body mass index is 45.31 kg/m . HEENT: Normal cephalic, ataumatic, pupils are equally round, sclera are anicteric, mucous membranes are moist, oropharynx is clear. Neck has no masses, asymmetry or lymphadenopathy. Respiratory: Clear to auscultation and percussion. Normal respiratory excursion and pattern. Cardiac: Examination is regular rate and rhythm. Normal S1/S2 Abdominal exam: Soft, nontender, with no palpable masses. No hepatosplenomegaly. No palpable hernias. Extremities: no clubbing, cyanosis or edema. No adenopathy. LABORATORY VALUES: As Noted RADIOLOGIC STUDIES: As Noted IMPRESSION: encounter for screening colonoscopy PLAN: I have reviewed my findings with the surgeon. Will plan for lower endoscopy. We discussed the risks and benefits of the planned endoscopy. I have informed the patient that complications can occur including failure to complete the endoscopy and perforation. The patient had the opportunity to ask questions concerning the planned endoscopy. My staff has also explained the procedure to the patient in understandable terms and has given the patient printed material concerning the procedure. The patient freely consents to surgery. The patient was offered a surgery/procedure at a [facility] facility. I have counseled the patient regarding the risk of exposure to and/or potential harm posed by the COVID-19 virus with having a surgery/procedure at this time versus the risk of delaying the surgery/procedure. It is not possible to know either the risk of delaying the surgery or procedure or chance of getting an infection with perfect accuracy, but a joint decision was made between the patient and myself to proceed at this time with endoscopy. I plan to use Golytely bowel preparation I have explained to the patient the difference between IV conscious sedation and MAC anesthesia - and I have offered either, according to the patient's wishes. I have explained that with IV conscious sedation there is no anesthesia provider available and therefore there is a limitation of the amount of IV medications that can be given and that the patient may wake up in the middle of the procedure and/or experience pain/discomfort during the procedure. Further discussion was done and the patient was given the opportunity to ask questions and all questions were answered. The patient chooses IV conscious sedation Diagnoses: (Z12.11) Encounter for screening for malignant neoplasm of colon (primary encounter diagnosis) Consultation requested by Dr. Pinto for an opinion regarding screening colonoscopy. My final recommendations will be communicated back to the requesting physician by way of shared Medical record or letter to requesting physician via US mail. Gail Law PA-C HISTORY AND PHYSICAL Ernie Xiao Benji 1975 REFERRING PHYSICIAN: Adali Pinto DO CHIEF COMPLAINT: Consult (Colonoscopy) HPI: The patient is a 47 year old female referred for endoscopy. Ernie notes some loose stools ever since her laparoscopic cholecystectomy earlier this year. Patient denies any weight changes, blood in stools, black tarry stools or abdominal pain. Denies family history of colon issues in a first-degree relative. The patient notes no upper GI complaints. Ernie has not undergone prior endoscopy. Patient's past medical history is significant for obesity, hypertension, anxiety. She follows with Dr. Pinto in primary care for her chronic medical conditions. Patient denies chest pain, shortness of breath or recent hospitalizations. Denies problems with sedation in the past. PAST MEDICAL HISTORY PAST MEDICAL HISTORY Diagnosis Date BMI 40.0-44.9, adult ([facility]) 02/18/2022 Essential hypertension Generalized anxiety disorder NONE PAST SURGICAL HISTORY PAST SURGICAL HISTORY Procedure Laterality Date LAPAROSCOPIC CHOLECYSTECTOMY 02/18/2022 PAST SURGICAL HISTORY OF 2015 D & C CURRENT MEDICATIONS Current Outpatient Medications Medication Sig metoprolol succinate ER (TOPROL XL) 100 mg Take 100 mg by mouth once daily. citalopram (CELEXA) 20 mg tablet Take 20 mg by mouth once daily. cholecalciferol, vitamin D3, (VITAMIN D3 ORAL) Take by mouth once daily. ibuprofen (MOTRIN) 800 mg tablet Take 800 mg by mouth as needed. naproxen sodium (ANAPROX) 220 mg tablet Take by mouth as needed. Lactobacillus acidophilus (PROBIOTIC ORAL) Take by mouth once daily. MULTIVITAMIN TAB Take one(1) tablet daily. No current facility-administered medications for this visit. ALLERGIES: Patient has no known allergies. PERSONAL HISTORY: SOCIAL HISTORY Social History Tobacco Use Smoking status: Never Smokeless tobacco: Never Vaping Use Vaping Use: Never used Substance Use Topics Alcohol use: Yes Comment: OCCAS. Drug use: No FAMILY HISTORY: FAMILY HISTORY FAMILY HISTORY Problem Relation Age of Onset Cancer Maternal Grandmother Cancer Maternal Grandfather Diabetes Father Heart Father Diabetes Paternal Grandfather other (PARKINSON'S) Paternal Grandfather REVIEW OF SYMPTOMS: The review of systems data was entered by the nurse and reviewed by sd Nursing Notes: Carissa Smith 07/15/2022 8:35 AM Signed REVIEW OF SYSTEMS: General: The patient denies fatigue, denies weight loss, denies weight gain, denies feeling hot, and denies feelings of cold. Eyes: The patient denies glaucoma, denies eye injury/surgery, wears glasses or contacts. Ear/Nose/Throat: The patient NOTES allergies, denies hayfever, denies ear infections, and denies bloody noses. Cardiovascular: The patient denies chest pain, denies heart disease, NOTES high blood pressure,denies cardiac stent, denies prior heart attack, denies irregular heart beat, denies high cholesterol, denies poor circulation, denies heart failure, other cardiac issues, denies claudication, denies cold feet, denies peripheral arterial stent. Respiratory: The patient denies tuberculosis, denies pneumonia, denies frequent cough, denies pulmonary embolism, denies shortness of breath, and denies coughing up blood. Gastrointestinal: The patient denies difficulty swallowing, denies acid reflux, denies ulcers, denies vomiting, denies jaundice/hepatitis, denies gallbladder problems, denies black or tarry stools, denies hemorrhoids, denies bleeding from rectum, denies diverticulitis, denies constipation, denies diarrhea, denies loss of stool control, and denies hernias. Kidney/Bladder: The patient denies kidney stones, denies urine infections, and denies bloody urine. Skin: The patient denies a history of skin cancer, denies bleeding/changing moles, and denies a history of skin rash. Neurologic: The patient denies a history of epilepsy/convulsions, denies headaches, denies head/spinal injuries, and denies stroke/TIA. Psychiatric: The patient denies psychiatric medications, denies depression, and denies voices, denies substance abuse. Endocrine: The patient denies thyroid disorders, denies diabetes, and denies hormonal problems. Hematologic: The patient NOTES a history of bruising, denies bleeding, and denies anemia, denies blood clots. Infections: The patient denies a history of measles and mumps, denies rheumatic fever, and denies sexually transmitted diseases. Musculoskeletal: The patient denies back pain/injury, denies back problems, denies sciatica, denies knee/foot trouble, NOTES arthritis, or denies gout. When was patient's last Mammogram screening? 12/2021 Last Colonoscopy: None Carissa Smith I have confirmed and edited as necessary, the PFSH and ROS obtained by others. Gail Law PA-C PHYSICAL EXAMINATION: General: The patient is 47 year old female, well nourished, well hydrated in no acute distress. The patient is oriented to time, place, and person. VITALS: Blood pressure 129/58, pulse 72, temperature 36.9 C (98.5 F), height 172.7 cm (5' 8 ), weight 135.2 kg (298 lb), last menstrual period 06/11/2008, SpO2 97 %. Body mass index is 45.31 kg/m . HEENT: Normal cephalic, ataumatic, pupils are equally round, sclera are anicteric, mucous membranes are moist, oropharynx is clear. Neck has no masses, asymmetry or lymphadenopathy. Respiratory: Clear to auscultation and percussion. Normal respiratory excursion and pattern. Cardiac: Examination is regular rate and rhythm. Normal S1/S2 Abdominal exam: Soft, nontender, with no palpable masses. No hepatosplenomegaly. No palpable hernias. Extremities: no clubbing, cyanosis or edema. No adenopathy. LABORATORY VALUES: As Noted RADIOLOGIC STUDIES: As Noted IMPRESSION: encounter for screening colonoscopy PLAN: I have reviewed my findings with the surgeon. Will plan for lower endoscopy. We discussed the risks and benefits of the planned endoscopy. I have informed the patient that complications can occur including failure to complete the endoscopy and perforation. The patient had the opportunity to ask questions concerning the planned endoscopy. My staff has also explained the procedure to the patient in understandable terms and has given the patient printed material concerning the procedure. The patient freely consents to surgery. The patient was offered a surgery/procedure at a [facility] facility. I have counseled the patient regarding the risk of exposure to and/or potential harm posed by the COVID-19 virus with having a surgery/procedure at this time versus the risk of delaying the surgery/procedure. It is not possible to know either the risk of delaying the surgery or procedure or chance of getting an infection with perfect accuracy, but a joint decision was made between the patient and myself to proceed at this time with endoscopy. I plan to use Golytely bowel preparation I have explained to the patient the difference between IV conscious sedation and MAC anesthesia - and I have offered either, according to the patient's wishes. I have explained that with IV conscious sedation there is no anesthesia provider available and therefore there is a limitation of the amount of IV medications that can be given and that the patient may wake up in the middle of the procedure and/or experience pain/discomfort during the procedure. Further discussion was done and the patient was given the opportunity to ask questions and all questions were answered. The patient chooses IV conscious sedation Diagnoses: (Z12.11) Encounter for screening for malignant neoplasm of colon (primary encounter diagnosis) Consultation requested by Dr. Pinto for an opinion regarding screening colonoscopy. My final recommendations will be communicated back to the requesting physician by way of shared Medical record or letter to requesting physician via US mail. Gail Law PA-C documented in this encounter [facility] 07-15-2022 Note HNO ID: [id number] Author: Gail Law PA-C Service: ? Author Type: Physician Turn Down Man Type: Progress Notes Filed: 07/20/2022 4:30 PM Note Text: HISTORY AND PHYSICAL Ernie Leblanc 1975 REFERRING PHYSICIAN: Adali Pinto DO CHIEF COMPLAINT: Consult (Colonoscopy) HPI: The patient is a 47 year old female referred for endoscopy. Ernie notes some loose stools ever since her laparoscopic cholecystectomy earlier this year. Patient denies any weight changes, blood in stools, black tarry stools or abdominal pain. Denies family history of colon issues in a first-degree relative. The patient notes no upper GI complaints. Ernie has not undergone prior endoscopy. Patient's past medical history is significant for obesity, hypertension, anxiety. She follows with Dr. Pinto in primary care for her chronic medical conditions. Patient denies chest pain, shortness of breath or recent hospitalizations. Denies problems with sedation in the past. PAST MEDICAL HISTORY Diagnosis Date BMI 40.0-44.9, adult ([facility]) 02/18/2022 Essential hypertension Generalized anxiety disorder NONE PAST SURGICAL HISTORY Procedure Laterality Date LAPAROSCOPIC CHOLECYSTECTOMY 02/18/2022 PAST SURGICAL HISTORY OF 2015 D AND C Current Outpatient Medications Medication Sig metoprolol succinate ER (TOPROL XL) 100 mg Take 100 mg by mouth once daily. citalopram (CELEXA) 20 mg tablet Take 20 mg by mouth once daily. cholecalciferol, vitamin D3, (VITAMIN D3 ORAL) Take by mouth once daily. ibuprofen (MOTRIN) 800 mg tablet Take 800 mg by mouth as needed. naproxen sodium (ANAPROX) 220 mg tablet Take by mouth as needed. Lactobacillus acidophilus (PROBIOTIC ORAL) Take by mouth once daily. MULTIVITAMIN TAB Take one(1) tablet daily. No current facility-administered medications for this visit. ALLERGIES: Patient has no known allergies. PERSONAL HISTORY: Social History Tobacco Use Smoking status: Never Smokeless tobacco: Never Vaping Use Vaping Use: Never used Substance Use Topics Alcohol use: Yes Comment: OCCAS. Drug use: No FAMILY HISTORY: FAMILY HISTORY Problem Relation Age of Onset Cancer Maternal Grandmother Cancer Maternal Grandfather Diabetes Father Heart Father Diabetes Paternal Grandfather other (PARKINSON'S) Paternal Grandfather REVIEW OF SYMPTOMS: The review of systems data was entered by the nurse and reviewed by sd Nursing Notes: Carissa Smith 07/15/2022 8:35 AM Signed REVIEW OF SYSTEMS: General: The patient denies fatigue, denies weight loss, denies weight gain, denies feeling hot, and denies feelings of cold. Eyes: The patient denies glaucoma, denies eye injury/surgery, wears glasses or contacts. Ear/Nose/Throat: The patient NOTES allergies, denies hayfever, denies ear infections, and denies bloody noses. Cardiovascular: The patient denies chest pain, denies heart disease, NOTES high blood pressure,denies cardiac stent, denies prior heart attack, denies irregular heart beat, denies high cholesterol, denies poor circulation, denies heart failure, other cardiac issues, denies claudication, denies cold feet, denies peripheral arterial stent. Respiratory: The patient denies tuberculosis, denies pneumonia, denies frequent cough, denies pulmonary embolism, denies shortness of breath, and denies coughing up blood. Gastrointestinal: The patient denies difficulty swallowing, denies acid reflux, denies ulcers, denies vomiting, denies jaundice/hepatitis, denies gallbladder problems, denies black or tarry stools, denies hemorrhoids, denies bleeding from rectum, denies diverticulitis, denies constipation, denies diarrhea, denies loss of stool control, and denies hernias. Kidney/Bladder: The patient denies kidney stones, denies urine infections, and denies bloody urine. Skin: The patient denies a history of skin cancer, denies bleeding/changing moles, and denies a history of skin rash. Neurologic: The patient denies a history of epilepsy/convulsions, denies headaches, denies head/spinal injuries, and denies stroke/TIA. Psychiatric: The patient denies psychiatric medications, denies depression, and denies voices, denies substance abuse. Endocrine: The patient denies thyroid disorders, denies diabetes, and denies hormonal problems. Hematologic: The patient NOTES a history of bruising, denies bleeding, and denies anemia, denies blood clots. Infections: The patient denies a history of measles and mumps, denies rheumatic fever, and denies sexually transmitted diseases. Musculoskeletal: The patient denies back pain/injury, denies back problems, denies sciatica, denies knee/foot trouble, NOTES arthritis, or denies gout. When was patient's last Mammogram screening? 12/2021 Last Colonoscopy: Flakito Smith I have confirmed and edited as necessary, the PFSH and ROS obtained by others. Gail Law PA-C PHYSICAL EXAMINATION: General: The patient is 47 yea (more content not included)... [facility] 07-15-2022 History of Presen t illness Narrative HISTORY AND PHYSICAL Ernie Leblanc 1975 REFERRING PHYSICIAN: Adali Pinto DO CHIEF COMPLAINT: Consult (Colonoscopy) HPI: The patient is a 47 year old female referred for endoscopy. Ernie notes some loose stools ever since her laparoscopic cholecystectomy earlier this year. Patient denies any weight changes, blood in stools, black tarry stools or abdominal pain. Denies family history of colon issues in a first-degree relative. The patient notes no upper GI complaints. Ernie has not undergone prior endoscopy. Patient's past medical history is significant for obesity, hypertension, anxiety. She follows with Dr. Pinto in primary care for her chronic medical conditions. Patient denies chest pain, shortness of breath or recent hospitalizations. Denies problems with sedation in the past. PAST MEDICAL HISTORY Diagnosis Date BMI 40.0-44.9, adult ([facility]) 02/18/2022 Essential hypertension Generalized anxiety disorder NONE PAST SURGICAL HISTORY Procedure Laterality Date LAPAROSCOPIC CHOLECYSTECTOMY 02/18/2022 PAST SURGICAL HISTORY OF 2014 D & C Current Outpatient Medications Medication Sig metoprolol succinate ER (TOPROL XL) 100 mg Take 100 mg by mouth once daily. citalopram (CELEXA) 20 mg tablet Take 20 mg by mouth once daily. cholecalciferol, vitamin D3, (VITAMIN D3 ORAL) Take by mouth once daily. ibuprofen (MOTRIN) 800 mg tablet Take 800 mg by mouth as needed. naproxen sodium (ANAPROX) 220 mg tablet Take by mouth as needed. Lactobacillus acidophilus (PROBIOTIC ORAL) Take by mouth once daily. MULTIVITAMIN TAB Take one(1) tablet daily. No current facility-administered medications for this visit. ALLERGIES: Patient has no known allergies. PERSONAL HISTORY: Social History Tobacco Use Smoking status: Never Smokeless tobacco: Never Vaping Use Vaping Use: Never used Substance Use Topics Alcohol use: Yes Comment: OCCAS. Drug use: No FAMILY HISTORY: FAMILY HISTORY Problem Relation Age of Onset Cancer Maternal Grandmother Cancer Maternal Grandfather Diabetes Father Heart Father Diabetes Paternal Grandfather other (PARKINSON'S) Paternal Grandfather REVIEW OF SYMPTOMS: The review of systems data was entered by the nurse and reviewed by sd Nursing Notes: Carissa Smith 07/15/2022 8:35 AM Signed REVIEW OF SYSTEMS: General: The patient denies fatigue, denies weight loss, denies weight gain, denies feeling hot, and denies feelings of cold. Eyes: The patient denies glaucoma, denies eye injury/surgery, wears glasses or contacts. Ear/Nose/Throat: The patient NOTES allergies, denies hayfever, denies ear infections, and denies bloody noses. Cardiovascular: The patient denies chest pain, denies heart disease, NOTES high blood pressure,denies cardiac stent, denies prior heart attack, denies irregular heart beat, denies high cholesterol, denies poor circulation, denies heart failure, other cardiac issues, denies claudication, denies cold feet, denies peripheral arterial stent. Respiratory: The patient denies tuberculosis, denies pneumonia, denies frequent cough, denies pulmonary embolism, denies shortness of breath, and denies coughing up blood. Gastrointestinal: The patient denies difficulty swallowing, denies acid reflux, denies ulcers, denies vomiting, denies jaundice/hepatitis, denies gallbladder problems, denies black or tarry stools, denies hemorrhoids, denies bleeding from rectum, denies diverticulitis, denies constipation, denies diarrhea, denies loss of stool control, and denies hernias. Kidney/Bladder: The patient denies kidney stones, denies urine infections, and denies bloody urine. Skin: The patient denies a history of skin cancer, denies bleeding/changing moles, and denies a history of skin rash. Neurologic: The patient denies a history of epilepsy/convulsions, denies headaches, denies head/spinal injuries, and denies stroke/TIA. Psychiatric: The patient denies psychiatric medications, denies depression, and denies voices, denies substance abuse. Endocrine: The patient denies thyroid disorders, denies diabetes, and denies hormonal problems. Hematologic: The patient NOTES a history of bruising, denies bleeding, and denies anemia, denies blood clots. Infections: The patient denies a history of measles and mumps, denies rheumatic fever, and denies sexually transmitted diseases. Musculoskeletal: The patient denies back pain/injury, denies back problems, denies sciatica, denies knee/foot trouble, NOTES arthritis, or denies gout. When was patient's last Mammogram screening? 12/2021 Last Colonoscopy: None Carissa Smith I have confirmed and edited as necessary, the PFSH and ROS obtained by others. Gail Law PA-C PHYSICAL EXAMINATION: General: The patient is 47 year old female, well nourished, well hydrated in no acute distress. The patient is oriented to time, place, and person. VITALS: Blood pressure 129/58, pulse 72, temperature 36.9 C (98.5 F), height 172.7 cm (5' 8 ), weight 135.2 kg (298 lb), last menstrual period 06/11/2008, SpO2 97 %. Body mass index is 45.31 kg/m . HEENT: Normal cephalic, ataumatic, pupils are equally round, sclera are anicteric, mucous membranes are moist, oropharynx is clear. Neck has no masses, asymmetry or lymphadenopathy. Respiratory: Clear to auscultation and percussion. Normal respiratory excursion and pattern. Cardiac: Examination is regular rate and rhythm. Normal S1/S2 Abdominal exam: Soft, nontender, with no palpable masses. No hepatosplenomegaly. No palpable hernias. Extremities: no clubbing, cyanosis or edema. No adenopathy. LABORATORY VALUES: As Noted RADIOLOGIC STUDIES: As Noted Assessment IMPRESSION: encounter for screening colonoscopy PLAN: I have reviewed my findings with the surgeon. Will plan for lower endoscopy. We discussed the risks and benefits of the planned endoscopy. I have informed the patient that complications can occur including failure to complete the endoscopy and perforation. The patient had the opportunity to ask questions concerning the planned endoscopy. My staff has also explained the procedure to the patient in understandable terms and has given the patient printed material concerning the procedure. The patient freely consents to surgery. The patient was offered a surgery/procedure at a [facility] facility. I have counseled the patient regarding the risk of exposure to and/or potential harm posed by the COVID-19 virus with having a surgery/procedure at this time versus the risk of delaying the surgery/procedure. It is not possible to know either the risk of delaying the surgery or procedure or chance of getting an infection with perfect accuracy, but a joint decision was made between the patient and myself to proceed at this time with endoscopy. I plan to use Golytely bowel preparation I have explained to the patient the difference between IV conscious sedation and MAC anesthesia - and I have offered either, according to the patient's wishes. I have explained that with IV conscious sedation there is no anesthesia provider available and therefore there is a limitation of the amount of IV medications that can be given and that the patient may wake up in the middle of the procedure and/or experience pain/discomfort during the procedure. Further discussion was done and the patient was given the opportunity to ask questions and all questions were answered. The patient chooses IV conscious sedation Diagnoses: (Z12.11) Encounter for screening for malignant neoplasm of colon (primary encounter diagnosis) Consultation requested by Dr. Pinto for an opinion regarding screening colonoscopy. My final recommendations will be communicated back to the requesting physician by way of shared Medical record or letter to requesting physician via [place] mail. Gail Law PA-C documented in this encounter [facility] 07-15-2022 Nurse Note REVIEW OF SYSTEMS: General: The patient denies fatigue, denies weight loss, denies weight gain, denies feeling hot, and denies feelings of cold. Eyes: The patient denies glaucoma, denies eye injury/surgery, wears glasses or contacts. Ear/Nose/Throat: The patient NOTES allergies, denies hayfever, denies ear infections, and denies bloody noses. Cardiovascular: The patient denies chest pain, denies heart disease, NOTES high blood pressure,denies cardiac stent, denies prior heart attack, denies irregular heart beat, denies high cholesterol, denies poor circulation, denies heart failure, other cardiac issues, denies claudication, denies cold feet, denies peripheral arterial stent. Respiratory: The patient denies tuberculosis, denies pneumonia, denies frequent cough, denies pulmonary embolism, denies shortness of breath, and denies coughing up blood. Gastrointestinal: The patient denies difficulty swallowing, denies acid reflux, denies ulcers, denies vomiting, denies jaundice/hepatitis, denies gallbladder problems, denies black or tarry stools, denies hemorrhoids, denies bleeding from rectum, denies diverticulitis, denies constipation, denies diarrhea, denies loss of stool control, and denies hernias. Kidney/Bladder: The patient denies kidney stones, denies urine infections, and denies bloody urine. Skin: The patient denies a history of skin cancer, denies bleeding/changing moles, and denies a history of skin rash. Neurologic: The patient denies a history of epilepsy/convulsions, denies headaches, denies head/spinal injuries, and denies stroke/TIA. Psychiatric: The patient denies psychiatric medications, denies depression, and denies voices, denies substance abuse. Endocrine: The patient denies thyroid disorders, denies diabetes, and denies hormonal problems. Hematologic: The patient NOTES a history of bruising, denies bleeding, and denies anemia, denies blood clots. Infections: The patient denies a history of measles and mumps, denies rheumatic fever, and denies sexually transmitted diseases. Musculoskeletal: The patient denies back pain/injury, denies back problems, denies sciatica, denies knee/foot trouble, NOTES arthritis, or denies gout. When was patient's last Mammogram screening? 12/2021 Last Colonoscopy: None Carissa Smith documented in this encounter [facility] 02-27-2022 Miscellaneous Notes Called patient to review results after consulting with urology regarding test results. Urine culture was negative. UA showed mahogany color cloudy urine and was positive for hemoglobin and urobilinogen. Per urology, the hemoglobin and urobilinogen may represent false positive as those would be affected by the urine being slightly darker in color. They noted that the microscopic exam was NEGATIVE for microscopic hematuria. Per urology, as long as patient asymptomatic recommendation is for increased hydration and repeat UA with microscopic in 1 month with further recommendations after that exam. Patient confirmed no dysuria, frequent urination or burning with urination. She is working to increase her hydration. She verbalized understanding of all above and agreed with the plan. Patient called requesting results from UA. Stated can update patient via [employer]. documented in this encounter [facility] 02-25-2022 Note HNO ID: [id number] Author: Gail Law PA-C Service: ? Author Type: Physician Turn Down Man Type: Progress Notes Filed: 03/02/2022 11:41 AM Note Text: FOLLOW UP VISIT - CHOLECYSTECTOMY NAME: Ernie Xiao [facility] NO.: [id number] DATE OF SERVICE: 02/25/2022 : 1975 REFERRING PHYSICIAN: Adali Pinto DO Ernie is a patient I am following for a complaint of right upper quadrant pain. Dr. Carter performed a laparoscopic cholecystectomy on 02/18/22. Pathology showed chronic cholecystitis with cholesterolosis. The patient currently notes no major abdominal complaints, but does note her urine has appeared darker since surgery. Denies any burning or frequency. Denies history of kidney issues. She is trying to drink more water. her appetite has been good. she denies fever, chills or abdominal pain. she does note some mild incisional discomfort. VITALS: Blood pressure 134/88, pulse 65, temperature 36.6 ?C (97.8 ?F), height 172.7 cm (5' 8 ), weight 59.6 kg (131 lb 8 oz), last menstrual period 06/11/2008, SpO2 100 %. On examination, the abdomen is benign. The incisions are healing well without signs of infection or inflammation. Assessment IMPRESSION: status post laparoscopic cholecystectomy PLAN: If the patient notes any problems, she should contact me immediately. she may return to her regular activities as tolerated, with the exception of no lifting greater than 25 pounds for the next 2 weeks. The patient is to contact me immediately is she experiences any of her preoperative symptoms. We discussed that occasional right up quadrant symptoms similar to the preoperative complaints can occur in the first couple of weeks post operatively. If this persists beyond the first 2-3 weeks, they should contact our office. Urine checked d/t patient complaints of change in appearance of urine-results in separate phone encounter Diagnoses: (K81.1) Chronic cholecystitis without calculus (primary encounter diagnosis) (R82.998) Dark urine Return to Clinic: The patient is instructed to follow-up with me as needed. Gail Law PA-C [facility] 02-25-2022 Instructions Gail Law PA-C - 02/25/2022 3:24 PM EDT -Check urine today -Push fluids The following instructions are important for you related to your office visit today with the [facility]. INSTRUCTIONS FOLLOWING YOU RECENT GALLBLADDER SURGERY You should be returning to your regular diet, If you have having persistent issues with tolerating your diet, please contact our office It is not unusual to have pain similar to your gallbladder symptoms for the first 1-2 weeks following surgery. If this persists beyond 2 weeks, contact the office. It is not unusual to have loose stools following surgery. This is usually self limited and related to the antibiotics that were given during your surgical procedure. Fiber supplementation and yogurt with active cultures may help you return to regular bowel activity. If you note loose stools persisting for over 2 weeks, or significant cramping or loose bloody stools, contact the office immediately. You may return to your regular activities. You may drive if you are no longer taking narcotic pain medication. You should perform no lifting greater than 20lbs for the next 2-3 weeks. Contact the office immediately if any of your incisions become increasingly tender, red or have drainage. Again, if you have any difficulties or concerns, contact our office immediately. If you note any additional difficulties, questions, or concerns, you should contact our office immediately @ [phone] and ask to be transferred to the General Surgery department. documented in this encounter [facility] 02-25-2022 History of Presen t illness Narrative FOLLOW UP VISIT - CHOLECYSTECTOMY NAME: Ernie Xiao [facility] NO.: [id number] DATE OF SERVICE: 02/25/2022 : 1975 REFERRING PHYSICIAN: Adali Pinto DO Ernie is a patient I am following for a complaint of right upper quadrant pain. Dr. Carter performed a laparoscopic cholecystectomy on 02/18/22. Pathology showed chronic cholecystitis with cholesterolosis. The patient currently notes no major abdominal complaints, but does note her urine has appeared darker since surgery. Denies any burning or frequency. Denies history of kidney issues. She is trying to drink more water. her appetite has been good. she denies fever, chills or abdominal pain. she does note some mild incisional discomfort. VITALS: Blood pressure 134/88, pulse 65, temperature 36.6 C (97.8 F), height 172.7 cm (5' 8 ), weight 59.6 kg (131 lb 8 oz), last menstrual period 06/11/2008, SpO2 100 %. On examination, the abdomen is benign. The incisions are healing well without signs of infection or inflammation. Assessment IMPRESSION: status post laparoscopic cholecystectomy PLAN: If the patient notes any problems, she should contact me immediately. she may return to her regular activities as tolerated, with the exception of no lifting greater than 25 pounds for the next 2 weeks. The patient is to contact me immediately is she experiences any of her preoperative symptoms. We discussed that occasional right up quadrant symptoms similar to the preoperative complaints can occur in the first couple of weeks post operatively. If this persists beyond the first 2-3 weeks, they should contact our office. Urine checked d/t patient complaints of change in appearance of urine-results in separate phone encounter Diagnoses: (K81.1) Chronic cholecystitis without calculus (primary encounter diagnosis) (R82.998) Dark urine Return to Clinic: The patient is instructed to follow-up with me as needed. Gail Law PA-C documented in this encounter [facility] documented as of this encounter (statuses as of 02/23/2022) [facility]03-30-2022 History of Past illness Narrative* Problem Noted Date Resolved Date Calculus of gallbladder with cholecystitis without biliary obstruction 02/18/2022 02/18/2022 documented as of this encounter (statuses as of 03/02/2022) [facility]03-30[facility]2022 History of Past illness Narrative* Problem Noted Date Resolved Date Calculus of gallbladder with cholecystitis without biliary obstruction 02/18/2022 02/18/2022 documented as of this encounter (statuses as of 03/16/2022) [facility]03-30[facility]20[facility] History of Past illness Narrative* Problem Noted Date Resolved Date Calculus of gallbladder with cholecystitis without biliary obstruction 02/18/2022 02/18/2022 documented as of this encounter (statuses as of 07/20/2022) [facility] History of Past illness Narrative* Problem Noted Date Resolved Date Calculus of gallbladder with cholecystitis without biliary obstruction 02/18/2022 02/18/2022 documented as of this encounter (statuses as of 08/15/2022) [facility]03-30-2022 NoteHNO ID: [id number] Author: Kong Maria APRN.CRNA Service: Anesthesiology Author Type: Nurse Power Bender Operator Type: Anesthesia Procedure Notes Filed: 02/18/2022 11:57 AM Note Text: ANESTHESIOLOGY PROCEDURE NOTE Gastric Tube General Information Procedure Start Time/Medication Administration: 02/18/2022 11:25 AM Procedure End Time: 02/18/2022 11:27 AM Indication: gastric decompression Staffing SUPERVISOR METAL PLACING: Kong Maria APRN.SUPERVISOR METAL PLACING Performed by: KAELA Procedure Details Type: Orogastric tube Size: 18 Fr cm Successful Placement: yes Post-Procedure Details SIGNATURE: Kong Maria APRN.CRNA PATIENT NAME: Ernie Leblanc DATE: February 18, 2022 TIME: 11:57 AM CSN: [id number] ID: [id number] Author: Kong Maria APRN.CRNA Service: Anesthesiology Author Type: Nurse Power Bender Operator Type: Anesthesia Procedure Notes Filed: 02/18/2022 11:57 AM Note Text: ANESTHESIOLOGY PROCEDURE NOTE Airway General Information Procedure Start Time/Medication Administration: 02/18/2022 11:15 AM Procedure End Time: 02/18/2022 11:22 AM Patient location during procedure: OR Timeout Performed Pre-procedure: timeout performed Consent Obtained: Yes Patient identity confirmed: arm band, care steam room attendant and patient Staffing SUPERVISOR METAL PLACING: Kong Primiano, [employer].SUPERVISOR METAL PLACING Performed by: SUPERVISOR METAL PLACING Indications and Patient Condition Preoxygenated: yes Patient position: sniffing Manual In-Line Stabilization: No Difficult Mask: No Indications for airway management: anesthesia anesthesia circuit Method: asleep Cricoid Pressure: No Airway Accessory: oral airway Final Airway Details Final airway type: endotracheal airway Final Endotracheal Airway: ETT Cuffed: yes Successful intubation technique: video laryngoscopy Devices used: Andersen Endotracheal tube insertion site: oral Blade: Yoselin Blade size: #4 ETT size (mm): 7.0 Measured from: lips Measurement (cm): 22 Placement verified by: chest auscultation and capnometry Cormack-Lehane Classification: grade IIb - view of arytenoids or posterior of glottis only Number of attempts at approach: 2 (DL unsuccesful - esophageal, pt very anterior. 2nd attempt with andersen successful) Ventilation between attempts: BVM Failed airway: no Unrecognized esophageal intubation: no Airway not difficult SIGNATURE: Kong Maria APRN.SUPERVISOR METAL PLACING PATIENT NAME: Ernie Leblanc DATE: February 18, 2022 TIME: 11:55 AM CSN: [id number] ID: [id number] Author: Ignacio Carter MD Service: ? Author Type: Physician Type: Progress Notes Filed: 02/17/2022 10:14 AM Note Text: HISTORY AND PHYSICAL Ernie Xiao Benji 1975 REFERRING PHYSICIAN: Mary Spangler MD CHIEF COMPLAINT: Consult (gallbladder ) HPI: The patient is a pleasant 46 year old female who presents with RUQ abdominal pain and findings of cholelithiasis. She presented to [facility] ED on 01/25/2022 with increasing severity of RUQ abdominal pain which has been ongoing intermittently for about a year. She was afebrile, with normal WBC and normal LFTs. She underwent US abdomen at [facility] 01/30/2022. . ? FINDINGS: ? Liver: The liver is enlarged and measures 18.2 cm. There is increased echogenicity consistent with fatty infiltration. The bile ducts are within normal limits. There is hepatic color flow. The direction of portal flow is hepatopetal. There is no demonstrated mass lesion. ? Gallbladder: There is a contracted gallbladder. The gallbladder wall measures 3 mm. There is a negative sonographic Romero''s sign. There is no pericholecystic fluid. There are multiple echogenic structures within the gallbladder, consistent with multiple gallstones. ? Common Bile Duct (C.B.D.): The common bile duct measures 10 mm. ? Pancreas: Normal size of the head, body and tail of the pancreas. There is normal echogenicity of the pancreas. There is no demonstrated pancreatic mass or cyst. ? Right Kidney: Normal size of the right kidney. The right kidney measures 10.2 cm x 5 cm x 4.1 cm. Normal renal cortex. The right cortex measures 1.5 cm. There is no demonstrated renal mass or cyst. There is no right hydronephrosis. ? IMPRESSION: There is a contracted stone filled gallbladder. Fatty infiltration of the liver. Mild hepatomegaly. ? She denies fevers. She has some nausea, but denies emesis. Other family members with gallbladder disease - her mother had her gallbladder removed. Patient's significant medical illnesses - hypertension, denies history of [place]/CVA. ? SIGNIFICANT MEDICAL PROBLEMS: PAST MEDICAL HISTORY Diagnosis Date - Essential hypertension - Generalized anxiety disorder - NONE OPERATIONS: PAST SURGICAL HISTORY Procedure Laterality Date - NONE - PAST SURGICAL HISTORY OF 2015 D AND C CURRENT MEDICATIONS: Current Outpatient Medications Medication Sig Dispense Refill - metoprolol succinate ER (TOPROL XL) 100 mg Take 100 mg by mouth once daily. - citalopram (CELEXA) 20 mg tablet Take 20 mg by mouth once daily. - cholecalciferol, vitamin D3, (VITAMIN D3 ORAL) Take by mouth once daily. - ibuprofen (MOTRIN) 800 mg tablet Take 800 mg by mouth as needed. - naproxen sodium (ANAPROX) 220 mg tablet Take by mouth as needed. - Lactobacillus acidophilus (PROBIOTIC ORAL) Take by mouth once daily. - MULTIVITAMIN TAB Take one(1) tablet daily. 0 No current facility-administered medications for this visit. ALLERGIES: Patient has no known allergies. PERSONAL HISTORY: Social History Tobacco Use - Smoking status: Never Smoker - Smokeless tobacco: Never Used Vaping Use - Vaping Use: Never used Substance Use Topics - Alcohol use: Yes Comment: OCCAS. - Drug use: No FAMILY HISTORY: FAMILY HISTORY Problem Relation Age of Onset - Cancer Maternal Grandmother - Cancer Maternal Grandfather - Diabetes Father - Heart Father - Diabetes Paternal Grandfather - other (PARKINSON'S) Paternal Grandfather REVIEW OF SYMPTOMS: The review of systems data was entered by the nurse and reviewed by me Nursing Notes: Araceli OlmedoEMILI 02/17/2022 9:46 AM Signed REVIEW OF SYSTEMS: General: The patient notes fatigue, denies weight loss, denies weight gain, denies feeling hot, and denies feelings of cold. Eyes: The patient denies glaucoma, denies eye injury/surgery, wears glasses or contacts. Ear/Nose/Throat: The patient notes allergies, denies hayfever, denies ear infections, and denies bloody noses. Cardiovascular: The patient denies chest pain, denies heart disease, notes high blood pressure,denies cardiac stent, denies prior heart attack, denies irregular heart beat, denies high cholesterol, denies poor circulation, denies heart failure, other cardiac issues, denies claudication, denies cold feet, denies peripheral arterial stent. Respiratory: The patient denies tuberculosis, denies pneumonia, denies frequent cough, denies pulmonary embolism, denies shortness of breath, and denies coughing up blood. Gastrointestinal: The patient denies difficulty swallowing, denies acid reflux, denies ulcers, denies vomiting, denies jaundice/hepatitis, notes gallbladder problems, denies black or tarry stools, denies hemorrhoids, denies bleeding from rectum, denies diverticulitis, denies constipation, notes diarrhea, denies loss of stool control, and denies hernias. Kidney/Bladder: The p (more content not included)...[facility] 02-17-2022 History of Present illness Narrative* Ignacio Carter MD - 02/17/2022 10:12 AM EDT HISTORY AND PHYSICAL Ernie Leblanc 1975 REFERRING PHYSICIAN: Mary Spangler MD CHIEF COMPLAINT: Consult (gallbladder ) HPI: The patient is a pleasant 46 year old female who presents with RUQ abdominal pain and findingsof cholelithiasis. She presented to [facility] ED on 01/25/2022 with increasing severity of RUQ abdominal pain which has been ongoing intermittently for about a year. She was afebrile, with normal WBC and normal LFTs. She underwent US abdomen at [facility] 01/30/2022. . FINDINGS: Liver: The liver is enlarged and measures 18.2 cm. There is increased echogenicity consistent with fatty infiltration. The bile ducts are within normal limits. There is hepatic color flow. The direction of portal flow is hepatopetal. There is no demonstrated mass lesion. Gallbladder: There is a contracted gallbladder. The gallbladder wall measures 3 mm. There is a negative sonographic Romero''s sign. There is no pericholecystic fluid. There are multiple echogenic structures within the gallbladder, consistent with multiple gallstones. Common Bile Duct (C.B.D.): The common bile duct measures 10 mm. Pancreas: Normal size of the head, body and tail of the pancreas. There is normal echogenicity of the pancreas. There is no demonstrated pancreatic mass or cyst. Right Kidney: Normal size of the right kidney. The right kidney measures 10.2 cm x 5 cm x 4.1 cm. Normal renal cortex. The right cortex measures 1.5 cm. There is no demonstrated renal mass or cyst. There is no right hydronephrosis. IMPRESSION: There is a contracted stone filled gallbladder. Fatty infiltration of the liver. Mild hepatomegaly. She denies fevers. She has some nausea, but denies emesis. Other family members with gallbladder disease - her mother had her gallbladder removed. Patient's significant medical illnesses - hypertension, denies history of [place]/CVA. SIGNIFICANT MEDICAL PROBLEMS: PAST MEDICAL HISTORY Diagnosis Date Essential hypertension Generalized anxiety disorder NONE OPERATIONS: PAST SURGICAL HISTORY Procedure Laterality Date NONE PAST SURGICAL HISTORY OF 2015 D & C CURRENT MEDICATIONS: Current Outpatient Medications Medication Sig Dispense Refill metoprolol succinate ER (TOPROL XL) 100 mg Take 100 mg by mouth once daily. citalopram (CELEXA) 20 mg tablet Take 20 mg by mouth once daily. cholecalciferol, vitamin D3, (VITAMIN D3 ORAL) Take by mouth once daily. ibuprofen (MOTRIN) 800 mg tablet Take 800 mg by mouth as needed. naproxen sodium (ANAPROX) 220 mg tablet Take by mouth as needed. Lactobacillus acidophilus (PROBIOTIC ORAL) Take by mouth once daily. MULTIVITAMIN TAB Take one(1) tablet daily. 0 No current facility-administered medications for this visit. ALLERGIES: Patient has no known allergies. PERSONAL HISTORY: Social History Tobacco Use Smoking status: Never Smoker Smokeless tobacco: Never Used Vaping Use Vaping Use: Never used Substance Use Topics Alcohol use: Yes Comment: OCCAS. Drug use: No FAMILY HISTORY: FAMILY HISTORY Problem Relation Age of Onset Cancer Maternal Grandmother Cancer Maternal Grandfather Diabetes Father Heart Father Diabetes Paternal Grandfather other (PARKINSON'S) Paternal Grandfather REVIEW OF SYMPTOMS: The review of systems data was entered by the nurse and reviewed by me Nursing Notes: Araceli Olmedo LPN 02/17/2022 9:46 AM Signed REVIEW OF SYSTEMS: General: The patient notes fatigue, denies weight loss, denies weight gain, denies feeling hot, anddenies feelings of cold. Eyes: The patient denies glaucoma, denies eye injury/surgery, wears glasses or contacts. Ear/Nose/Throat: The patient notes allergies, denies hayfever, denies ear infections, and denies bloody noses. Cardiovascular: The patient denies chest pain, denies heart disease, notes high blood pressure,denies cardiac stent, denies prior heart attack, denies irregular heart beat, denies high cholesterol, denies poor circulation, denies heart failure, other cardiac issues, denies claudication, denies coldfeet, denies peripheral arterial stent. Respiratory: The patient denies tuberculosis, denies pneumonia, denies frequent cough, denies pulmonary embolism, denies shortness of breath, and denies coughing up blood. Gastrointestinal: The patient denies difficulty swallowing, denies acid reflux, denies ulcers, denies vomiting, denies jaundice/hepatitis, notes gallbladder problems, denies black or tarry stools, denies hemorrhoids, denies bleeding from rectum, denies diverticulitis, denies constipation, notes diarrhea, denies loss of stool control, and denies hernias. Kidney/Bladder: The patient denies kidney stones, denies urine infections, and denies bloody urine. Skin: The patient denies a history of skin cancer, denies bleeding/changing moles, and denies a history of skin rash. Neurologic: The patient denies a history of epilepsy/convulsions, denies headaches, denies head/spinal injuries, and denies stroke/TIA. Psychiatric: The patient denies psychiatric medications, denies depression, and denies voices, denies substance abuse. Endocrine: The patient denies thyroid disorders, denies diabetes, and denies hormonal problems. Hematologic: The patient denies a history of bruising, denies bleeding, and denies anemia, denies blood clots. Infections: The patient denies a history of measles and mumps, denies rheumatic fever, and denies sexually transmitted diseases. Musculoskeletal: The patient denies back pain/injury, denies back problems, denies sciatica, deniesknee/foot trouble, denies arthritis, or denies gout. When was patient's last Mammogram screening? 12/2021 Last Colonoscopy: None Araceli Olmedo LPN PHYSICAL EXAMINATION: General: The patient is 46 year old female, well nourished, well hydrated in no acute distress. Thepatient is oriented to time, place, and person. VITALS: Blood pressure 116/82, pulse 72, temperature 36.4 C (97.6 F), height 172.7 cm (5' 8 ), weight 131.5 kg (290 lb), last menstrual period 06/11/2008, SpO2 97 %. Body mass index is 44.09 kg/m . HEENT: Normal cephalic, ataumatic, pupils are equally round, sclera are anicteric, mucous membranesare moist, oropharynx is clear. Neck has no masses, asymmetry or lymphadenopathy. Thyroid is unremarkable. Respiratory: Clear to auscultation and percussion. Normal respiratory excursion and pattern. Cardiac: Examination is regular rate and rhythm. Abdominal exam: Normoactive bowel sounds, Soft, non tender in the right upper quadrant negative Romero's sign, with no palpable masses. No hepatosplenomegaly. No palpable hernias. Rectal exam: exam deferred Extremities: no clubbing, cyanosis or edema. No adenopathy. Other: LABORATORY VALUES: As Noted RADIOLOGIC STUDIES: As Noted Above Assessment IMPRESSION: Cholelithiasis PLAN: My plan is to perform a laparoscopic cholecystectomy with intraoperative choleangiogram. The planned surgical procedure was discussed extensively with the patient. The risks, benefits, anticipated outcomes and possible complications were mentioned. My staff has also explained the procedure in understandable terms and the patient was given the option to take printed material concerning the planned procedure. The patient had the opportunity to ask questions concerning the planned procedure.The patient freely consents to the planned procedure. Planned Procedure: LAPAROSCOPIC CHOLECYSTECTOMY WITHOUT INTRAOPERATIVE CHOLEANGIOGRAM - [id number] Planned antibiotic: Ancef 3gm IVPB financial sales professional to OR SCDs needed - Yes Turn Down Man Needed - Yes Diagnoses: (K80.20) Calculus of gallbladder without cholecystitis without obstruction (primary encounter diagnosis) COVID (Procedure Consent) Procedure Criteria Procedure Criteria: Yes Elective The surgeon/proceduralist and patient have discussed in detail therisk of exposure to and/or potential harm posed by the COVID-19 virus with having a surgery/procedure at this time versus the risk of delaying the surgery/procedure. It is not possible to know eitherthe risk of delaying the surgery or procedure or chance of getting an infection with perfect accuracy, but a joint decision was made between the patient and the surgeon/proceduralist to proceed at this time with the scheduled surgery/procedure as indicated on the consent form. Ignacio Carter III, MD [facility] Note* Araceli Olmedo LPN - 02/17/2022 9:45 AM EDT REVIEW OF SYSTEMS: General: The patient notes fatigue, denies weight loss, denies weight gain, denies feeling hot, anddenies feelings of cold. Eyes: The patient denies glaucoma, denies eye injury/surgery, wears glasses or contacts. Ear/Nose/Throat: The patient notes allergies, denies hayfever, denies ear infections, and denies bloody noses. Cardiovascular: The patient denies chest pain, denies heart disease, notes high blood pressure,denies cardiac stent, denies prior heart attack, denies irregular heart beat, denies high cholesterol, denies poor circulation, denies heart failure, other cardiac issues, denies claudication, denies coldfeet, denies peripheral arterial stent. Respiratory: The patient denies tuberculosis, denies pneumonia, denies frequent cough, denies pulmonary embolism, denies shortness of breath, and denies coughing up blood. Gastrointestinal: The patient denies difficulty swallowing, denies acid reflux, denies ulcers, denies vomiting, denies jaundice/hepatitis, notes gallbladder problems, denies black or tarry stools, denies hemorrhoids, denies bleeding from rectum, denies diverticulitis, denies constipation, notes diarrhea, denies loss of stool control, and denies hernias. Kidney/Bladder: The patient denies kidney stones, denies urine infections, and denies bloody urine. Skin: The patient denies a history of skin cancer, denies bleeding/changing moles, and denies a history of skin rash. Neurologic: The patient denies a history of epilepsy/convulsions, denies headaches, denies head/spinal injuries, and denies stroke/TIA. Psychiatric: The patient denies psychiatric medications, denies depression, and denies voices, denies substance abuse. Endocrine: The patient denies thyroid disorders, denies diabetes, and denies hormonal problems. Hematologic: The patient denies a history of bruising, denies bleeding, and denies anemia, denies blood clots. Infections: The patient denies a history of measles and mumps, denies rheumatic fever, and denies sexually transmitted diseases. Musculoskeletal: The patient denies back pain/injury, denies back problems, denies sciatica, deniesknee/foot trouble, denies arthritis, or denies gout. When was patient's last Mammogram screening? 12/2021 Last Colonoscopy: None Araceli Olmedo LPN documented [facility] Miscellaneous Notes* Telephone Encounter - Loan Velazquez RN - 02/12/2022 9:36 AM EDT Called patient and left a message on her cell/home voicemail that I will be sending patient pre-op instructions in my chart and she could return my call to review her pre-op instructions. Loan Velazquez RN documented in this encounterMer[facility]03-16-2022 NoteHNO ID: [id number] Author: Mary Spangler MD Service: ? Author Type: Physician Type: Progress Notes Filed: 02/05/2022 7:47 AM Note Text: HISTORY AND PHYSICAL Ernie Leblanc 1975 REFERRING PHYSICIAN: Alonso Comer,* CHIEF COMPLAINT: Consult (gallstone, ultrasound at [facility]) HPI: The patient is a pleasant 46 year old female who presents with RUQ abdominal pain and findings of cholelithiasis. She presented to [facility] ED on 01/25/2022 with increasing severity of RUQ abdominal pain which has been ongoing intermittently for about a year. She was afebrile, with normal WBC and normal LFTs. She underwent US abdomen at [facility] 01/30/2022. . FINDINGS: Liver: The liver is enlarged and measures 18.2 cm. There is increased echogenicity consistent with fatty infiltration. The bile ducts are within normal limits. There is hepatic color flow. The direction of portal flow is hepatopetal. There is no demonstrated mass lesion. Gallbladder: There is a contracted gallbladder. The gallbladder wall measures 3 mm. There is a negative sonographic Romero''s sign. There is no pericholecystic fluid. There are multiple echogenic structures within the gallbladder, consistent with multiple gallstones. Common Bile Duct (C.B.D.): The common bile duct measures 10 mm. Pancreas: Normal size of the head, body and tail of the pancreas. There is normal echogenicity of the pancreas. There is no demonstrated pancreatic mass or cyst. Right Kidney: Normal size of the right kidney. The right kidney measures 10.2 cm x 5 cm x 4.1 cm. Normal renal cortex. The right cortex measures 1.5 cm. There is no demonstrated renal mass or cyst. There is no right hydronephrosis. IMPRESSION: There is a contracted stone filled gallbladder. Fatty infiltration of the liver. Mild hepatomegaly. She denies fevers. She has some nausea, but denies emesis. Other family members with gallbladder disease - her mother had her gallbladder removed. Patient's significant medical illnesses - hypertension, denies history of [place]/CVA. PAST MEDICAL HISTORY Diagnosis Date - Essential hypertension - Generalized anxiety disorder - Morbid obesity PAST SURGICAL HISTORY Procedure Laterality Date - NONE - PAST SURGICAL HISTORY OF 2015 D AND C Current Outpatient Medications Medication Sig - metoprolol succinate ER (TOPROL XL) 100 mg Take 100 mg by mouth once daily. - citalopram (CELEXA) 20 mg tablet Take 20 mg by mouth once daily. - cholecalciferol, vitamin D3, (VITAMIN D3 ORAL) Take by mouth once daily. - ibuprofen (MOTRIN) 800 mg tablet Take 800 mg by mouth as needed. - naproxen sodium (ANAPROX) 220 mg tablet Take by mouth as needed. - Lactobacillus acidophilus (PROBIOTIC ORAL) Take by mouth once daily. - MULTIVITAMIN TAB Take one(1) tablet daily. ALLERGIES: Patient has no known allergies. PERSONAL HISTORY: Social History Tobacco Use - Smoking status: Never Smoker - Smokeless tobacco: Never Used Vaping Use - Vaping Use: Never used Substance Use Topics - Alcohol use: Yes Comment: OCCAS. - Drug use: No FAMILY HISTORY Problem Relation Age of Onset - Cancer Maternal Grandmother - Cancer Maternal Grandfather - Diabetes Father - Heart Father - Diabetes Paternal Grandfather - other (PARKINSON'S) Paternal Grandfather The review of systems data was entered by the nurse and reviewed by me Nursing Notes: Araceli Olmedo LPN 02/04/2022 3:54 PM Signed REVIEW OF SYSTEMS: General: The patient notes fatigue, denies weight loss, denies weight gain, denies feeling hot, and denies feelings of cold. Eyes: The patient denies glaucoma, denies eye injury/surgery, wears glasses or contacts. Ear/Nose/Throat: The patient notes allergies, denies hayfever, denies ear infections, and denies bloody noses. Cardiovascular: The patient denies chest pain, denies heart disease, notes high blood pressure,denies cardiac stent, denies prior heart attack, denies irregular heart beat, denies high cholesterol, denies poor circulation, denies heart failure, other cardiac issues, denies claudication, denies cold feet, denies peripheral arterial stent. Respiratory: The patient denies tuberculosis, denies pneumonia, denies frequent cough, denies pulmonary embolism, denies shortness of breath, and denies coughing up blood. Gastrointestinal: The patient denies difficulty swallowing, denies acid reflux, denies ulcers, denies vomiting, denies jaundice/hepatitis, notes gallbladder problems, denies black or tarry stools, denies hemorrhoids, denies bleeding from rectum, denies diverticulitis, denies constipation, notes diarrhea, denies loss of stool control, and denies hernias. Kidney/Bladder: The patient denies kidney stones, denies urine infections, and denies bloody urine. Skin: The patient denies a history of skin cancer, denies bleeding/changing moles, and denies a history of skin rash. Neurologi (more content not included)...[facility]03-16-2022 Miscellaneous Notes* Telephone Encounter - Brent Pedraza - 02/04/2022 4:23 PM EDT 02-18-2022 Juan Antonio Carter documented in this encounterMercy [facility] HospitalEvaluation + Plan note Future Appointments Appointment Date:12/18/2022 09:00:00 AM Scheduled Provider:ADALI PINTO DO Location:[facility] Appointment Type:PC OV Follow Up [facility] Evaluation + Plan note Future Appointments Appointment Date:06/25/2023 03:00:00 PM Scheduled Provider:ADALI PINTO DO Location:[facility] Appointment Type: Wellness Annual Future Scheduled Tests Laboratory* Magnesium Level 04/16/23 * Thyroid Stimulating Hormone 04/16/23 * Vitamin B12 Level 04/16/23 * Complete Blood Count 04/16/23 * Lipid Profile 04/16/23 * Vitamin D Level 04/16/23 * Complete Metabolic Panel 04/16/23 [facility] Evaluation + Plan note Future Appointments Appointment Date:06/25/2023 03:00:00 PM Scheduled Provider:ADALI PINTO DO Location:[facility] Appointment Type: Wellness Annual [facility] Evaluation + Plan note Future Appointments Appointment Date:01/28/2024 09:00:00 AM Scheduled Provider:ADALI PINTO DO Location:[facility] Appointment Type:PC OV [facility] EvPingpigeonation note* Diagnosis Calculus of gallbladder without cholecystitis without obstruction- Primary Calculus of gallbladder without mention of cholecystitis or obstruction Calculus of gallbladder with cholecystitis without biliary obstruction, unspecified cholecystitis acuity documented in this encounter [facility]* Diagnosis Chronic cholecystitis without calculus- Primary Chronic cholecystitis Dark urine Other nonspecific finding on examination of urine documented in this encounter [facility]* Diagnosis Dark urine- Primary Other nonspecific finding on examination of urine [facility]* Diagnosis Encounter for screening for malignant neoplasm of colon- Primary Special screening for malignant neoplasms, colon [facility]* Diagnosis Screening for colon cancer- Primary Special screening for malignant neoplasms, colon documented in this encounter [facility] course Narrative No data available for this section [facility] Hospital Discharge instructions No data available for this section [facility] Progress note No data available for this section [facility] Reason for referral (narrative)* Outpatient Procedure (Routine) - Closed Specialty Diagnoses / Procedures Referred By Contac t Referred To Contact [facility] Diagnoses Screening for colon cancer Procedures COLONOSCOPY SCREENING COLONOSCOPY FLX DX W/COLLJ SPEC WHEN Gail Merino PA-C [address] [place] [address] [facility] [place] [address] [place] [id number] Referral ID Status Reason Start Date Expiration Date V isits Requested Visits Authorized [id number] Closed Auto-Generate d Referral 07/15/2022 07/15/2023 1 1 [facility] for visit Narrative* Outpatient Procedure (Routine) - Closed Specialty Diagnoses / Procedures Referred By Contac t Referred To Contact [facility] Diagnoses Screening for colon cancer Procedures COLONOSCOPY SCREENING COLONOSCOPY FLX DX W/COLLJ SPEC WHEN Gail Merino PA-C [address] [place] [address] [facility] [place] [address] [place] [id number] Referral ID Status Reason Start Date Expiration Date V isits Requested Visits Authorized [id number] Closed Auto-Generate d Referral 07/15/2022 07/15/2023 1 1 [facility] Advance Directives No Advanced Directives Records FoundDocuments on File Type Date Recorded Patient Store Receiver Expl anation Advance Directive(s) 02/17/2022 9:42 AM Documents on File Type Date Recorded Patient Store Receiver Expl anation Advance Directive(s) 02/18/2022 9:05 AM Advance Directive(s) 02/17/2022 9:42 AM Summary Purpose Family History No Family History Records FoundNo Family History Records Found No data available for this section No data available for this section No Family History Records Found Medications Administered Section Inactive Administered Medications - up to 3 most recent administrations Medication Order MAR Action Action Date Dose Rate Site diphenhydrAMINE 12.5-50 mg injection (BENADRYL) 12.5-50 mg, INTRAVENOUS, DIRECTED, Starting on Wed08/14/22 at 1130, Until Wed08/14/22 at 1529, DOSING DIRECTED BY PHYSICIAN FOR PROCEDURAL SEDATION ONLY, Intraprocedure Given 08/14/2022 11:04 AM EDT 50 mg fentaNYL 50 mcg/mL 25-100 mcg injection (SUBLIMAZE) 25-100 mcg, INTRAVENOUS, DIRECTED, Starting on Wed08/14/22 at 1130, Until Wed08/14/22 at 1529, DOSING DIRECTED BY PHYSICIAN FOR PROCEDURAL SEDATION ONLY, Intraprocedure Given 08/14/2022 11:11 AM EDT 50 mcg Additional Source Comments Source Comments (unrecognize d section and content) In the event this informatio n is protected by the Federal Confidentiality of Alcohol and Drug Abuse Patient Records regulations: The Federal rules restrict any use of the information to criminally investigate or prosecute any alcohol or drug abuse patient.[facility] HospitalIn the event this information is protected by the Federal Confidentiality of Alcohol and Drug Abuse Patient Records regulations: The Federal rules restrict any use of the information to criminally investigate or prosecute any alcohol or drug abuse patient.[facility] HospitalIn the event this information is protected by the Federal Confidentiality of Alcohol and Drug Abuse Patient Records regulations: The Federal rules restrict any use of the information to criminally investigate or prosecute any alcohol or drug abuse patient.[facility] HospitalIn the event this information is protected by the Federal Confidentiality of Alcohol and Drug Abuse Patient Records regulations: The Federal rules restrict any use of the information to criminally investigate or prosecute any alcohol or drug abuse patient.[facility] HospitalIn the event this information is protected by the Federal Confidentiality of Alcohol and Drug Abuse Patient Records regulations: The Federal rules restrict any use of the information to criminally investigate or prosecute any alcohol or drug abuse patient.[facility] HospitalIn the event this information is protected by the Federal Confidentiality of Alcohol and Drug Abuse Patient Records regulations: The Federal rules restrict any use of the information to criminally investigate or prosecute any alcohol or drug abuse patient.[facility] HospitalIn the event this information is protected by the Federal Confidentiality of Alcohol and Drug Abuse Patient Records regulations: The Federal rules restrict any use of the information to criminally investigate or prosecute any alcohol or drug abuse patient.[facility] Care Teams (unrecognized sec tion and content) Market Editor Relationship Specialty Start Date End Date Jesus Loera PCP - General Family Practice 12/30/10 Market Editor Relationship Specialty Start Date End Date Jesus Loera PCP - General Family Practice 12/30/10 02/17/22 Adali Pinto, DO [address] [place] [id number] PCP - General Family Practice 02/18/22 Market Editor Relationship Specialty Start Date End Date Adali Pinto, DO [address] [place] [address] PCP - General Family Practice 02/18/22 Market Editor Relationship Specialty Start Date End Date Adali Pinto, DO [address] [place] [id number] PCP - General Family Practice 02/18/22 Market Editor Relationship Specialty Start Date End Date Adali Pinto DO [address] [place] [id number] PCP - General Family Medicine 02/18/22 Reason for Visit (unrecogniz ed section and content) Reason Comments 02-18-2022 Lap Rochelle Adri Carter Reason Comments Post Op LAP ROCHELLE Reason Comments Results UA Reason Comments Consult Colonoscopy INFORMATION SOURCE (unrecogn ized section and content) DATE CREATED AUTHOR AUTHOR'S ORGANIZ ATION 08/26/[address] [facility] DATE CREATED AUTHOR AUTHOR'S ORGANIZ ATION 01/23/2024 [facility] ([place]) Care Team (unrecognized sect ion and content) Care Team Personnel Name: ANJUM STEELE MD Member Role: OBGYN Address: Address: [address] [place] [address] Name: ADALI PINTO DO Position: P4 Physician - Primary Care Med Service: Active Provider Member Role: Primary Care Physician Address: Address: [address] [place] [address] Name: DUDLEY FLETCHER Member Role: Confidential Investigator Care Team Related Persons Name: ELMER LEBLANC Address: Home [address] [place] [phone] Care Team Personnel Name: ANJUM STEELE MD Member Role: OBGYN Address: Address: [address] [place], [place] [address] Name: ADALI PINTO DO Position: P4 Physician - Primary Care Member Role: Primary Care Physician Address: Address: [address] [place] [address] Name: DUDLEY FLETCHER Member Role: Confidential Investigator Care Team Related Persons Name: ELMER LEBLANC Address: Home [address] [place] [phone] FOR RECORDS PERTAINING TO PATIENTS WHO ARE OR HAVE BEEN ENROLLED IN A CHEMICAL DEPENDENCY/SUBSTANCEABUSE PROGRAM, SOME INFORMATION MAY BE OMITTED. This clinical summary was aggregated from multiple sources. Caution should be exercised in using it in the provision of clinical care. This summary normalizes information from multiple sources, and as a consequence, information in this document may materially change the coding, format and clinical context of patient data. In addition, data may be omitted in some cases. CLINICAL DECISIONS SHOULD BE BASED ON THE PRIMARY CLINICAL RECORDS. [employer] [facility]. provides no warranty or guarantee of the accuracy or completeness of information in this document.
== END | disposition home or self-care (01) ==
LOC: OPBI 12:06
PROVIDERS: PCP Family Medicine; Referring Provider Obstetrics & Gynecology; Visit Provider Obstetrics & Gynecology
DX: Z12.31 Encounter for screening mammogram for malignant neoplasm of breast (principal)
CPT/HCPCS: 77063; 77067

== ENCOUNTER → 2025-02-02 | Outpatient (CLI) | payer OTHER, SELFPAY ==
--- NOTE | 2025-02-02 13:22 | BI_ITS ---
PROCEDURE: SCRN MAMM (CAD)W/RAYMUNDO BILAT REASON FOR EXAM: F, Age 49 y/o , BREAST CANCER SCREENING. No family history of breast cancer. TECHNIQUE: Bilateral screening digital breast tomosynthesis with 2D and 3D images. Computer aided detection. COMPARISON: 01/28/2024, 01/22/2023 FINDINGS: The breasts are heterogeneously dense which may obscure small masses. The mammogram demonstrates that the patient has dense breasts. Supplemental screening with whole breast ultrasound or MRI may be considered for further evaluation. No suspicious masses, areas of developing architectural distortion, or suspicious calcifications. BI/SCRN MAMM (CAD)W/RAYMUNDO BILAT IMPRESSION: There is no mammographic evidence of malignancy. BI-RADS 1: NEGATIVE. RECOMMEND ANNUAL MAMMOGRAPHIC SCREENING. Follow-up code: Routine Follow-up The patient will be notified of the results by letter. Reading Location: [id number]
== END | disposition home or self-care (01) ==
LOC: OPBI 13:20
PROVIDERS: PCP Family Medicine; Referring Provider Obstetrics & Gynecology; Visit Provider Obstetrics & Gynecology
DX: Z12.31 Encounter for screening mammogram for malignant neoplasm of breast (principal)
CPT/HCPCS: 77063; 77067